=== PATIENT | male | born 1950 | race Caucasian/White ===

== ENCOUNTER 2018-05-30 13:41 | Outpatient (REF) | payer BC, SELFPAY ==
[2018-05-30 20:22] LABS: Abs Immature Grans 0.06 k/cumm (0.0-0.09); Absolute Basophil Count 0.05 k/cumm (0.0-0.2); Absolute Eosinophil Count 0.04 k/cumm (0.0-0.7); Absolute Lymphocyte Count 0.77 k/cumm (1.2-3.4); Absolute Monocyte Count 0.93 k/cumm (0.11-0.7); Absolute Neutrophil Count 5.09 k/cumm (1.2-6.7); Basophils % 0.7; Eosinophils % 0.6; HCT 40.2 % (40.0-50.0); HGB 13.4 g/dL (13.5-17.5); Immature Grans % 0.9; Lymphocytes % 11.1; Mean Corp. HGB Concentration 33.3 g/dL (32.0-36.0); Mean Corpuscular Hemoglobin 31.7 pg (27.0-33.0); Mean Platelet Volume 11.2 fL (8.0-11.0); Monocytes % 13.4; Neutrophils % 73.3; Platelet Count 197 x1000/uL (130-400); RBC 4.23 m/cumm (4.50-6.00); RBC Distribution Width 12.1 % (11.8-14.1); White Blood Cell Count 6.94 k/cumm (4.4-10.8)
[2018-05-30 20:41] LABS: ALT 26 U/L (12-78); AST 23 U/L (15-37); Albumin 2.9 g/dL (3.4-5.0); Alkaline Phosphatase 58 U/L (46-116); Anion Gap 10.1 mmol/L (3-11); BUN 21 mg/dL (7-18); Bilirubin, Total 0.4 mg/dL (0.2-1.0); C-Reactive Protein 4.77 mg/dL (0.0-0.3); CO2 25.9 mmol/L (21.0-32.0); CREATININE 1.14 mg/dL (0.70-1.30); Calcium 8.3 mg/dL (8.5-10.1); Chloride 99 mmol/L (98-107); Glucose 100 mg/dL (70-100); Potassium 4.3 mmol/L (3.5-5.1); Sodium 135 mmol/L (136-145); Total Protein 5.9 g/dL (6.4-8.2)
[2018-05-30 20:59] LABS: ESR 39 MM/HR (1-20)
[2018-06-01 11:35] LABS: Lyme Ab w Rflx to Lyme Confirm Negative
[2018-06-01 21:42] LABS: Anaplasma phagocytophilum Negative (Negative); B. miyamotoi PCR Negative (Negative); Babesia divergens/MO-1 Negative (Negative); Babesia duncani Negative (Negative); Babesia microti Negative (Negative); Ehrlichia chaffeensis Negative (Negative); Ehrlichia ewingii/canis Negative (Negative); Ehrlichia muris eauclairensis Negative (Negative)
== END 2018-05-30 14:01 ==
LOC: NCHCN 13:41
PROVIDERS: PCP Specialist/Technologist Athletic Trainer; Visit Provider Specialist/Technologist Athletic Trainer
DX: R50.9 Fever, unspecified (principal); R53.81 Other malaise; R53.83 Other fatigue
CPT/HCPCS: 80053; 85652; 85025; 86140; 86618; 87798

== ENCOUNTER 2018-05-31 12:24 | Outpatient (CLI) | payer BC, SELFPAY ==
[2018-06-01 08:54] LABS: Cyclic Citrullinated Peptide <2.5 U/mL (<5.0)
[2018-06-01 10:55] LABS: Rheumatoid Factor 11 IU/mL (<12.5)
[2018-06-01 15:38] LABS: ANA Interpretation Negative (NEGAT)
[2018-06-02 11:49] LABS: c-ANCA Negative (Negative); p-ANCA Negative (Negative)
== END 2018-05-31 12:44 ==
PROVIDERS: PCP Specialist/Technologist Athletic Trainer; Visit Provider Specialist/Technologist Athletic Trainer
DX: R79.82 Elevated C-reactive protein (CRP) (principal); R50.9 Fever, unspecified
CPT/HCPCS: 36410; 86200; 87040; 86038; 86255; 86431

== ENCOUNTER 2018-06-15 13:37 | Outpatient (REF) | payer BC, SELFPAY ==
[2018-06-15 19:03] LABS: Abs Immature Grans 0.03 k/cumm (0.0-0.09); Absolute Basophil Count 0.03 k/cumm (0.0-0.2); Absolute Eosinophil Count 0.11 k/cumm (0.0-0.7); Absolute Lymphocyte Count 0.89 k/cumm (1.2-3.4); Absolute Monocyte Count 0.58 k/cumm (0.11-0.7); Absolute Neutrophil Count 3.94 k/cumm (1.2-6.7); Basophils % 0.5; HCT 36.2 % (40.0-50.0); HGB 12.1 g/dL (13.5-17.5); Immature Grans % 0.5; Lymphocytes % 15.9; Mean Corp. HGB Concentration 33.4 g/dL (32.0-36.0); Mean Corpuscular Hemoglobin 32.4 pg (27.0-33.0); Mean Corpuscular Volume 96.8 fL (80-95); Mean Platelet Volume 10.3 fL (8.0-11.0); Monocytes % 10.4; Neutrophils % 70.7; Platelet Count 244 x1000/uL (130-400); RBC 3.74 m/cumm (4.50-6.00); RBC Distribution Width 13.2 % (11.8-14.1); White Blood Cell Count 5.58 k/cumm (4.4-10.8)
[2018-06-15 19:28] LABS: ALT 47 U/L (12-78); AST 30 U/L (15-37); Albumin 3.2 g/dL (3.4-5.0); Alkaline Phosphatase 54 U/L (46-116); Anion Gap 9.1 mmol/L (3-11); BUN 26 mg/dL (7-18); Bilirubin, Total 0.5 mg/dL (0.2-1.0); C-Reactive Protein 0.21 mg/dL (0.0-0.3); CO2 25.9 mmol/L (21.0-32.0); CREATININE 1.34 mg/dL (0.70-1.30); Calcium 8.5 mg/dL (8.5-10.1); Chloride 102 mmol/L (98-107); Estimated GFR 53.01 (mL/min/1.73m2); Glucose 90 mg/dL (70-100); Magnesium 1.9 mg/dL (1.8-2.4); Potassium 4.6 mmol/L (3.5-5.1); Sodium 137 mmol/L (136-145); TSH (W/Ref FT4) 1.65 uIU/mL (0.358-3.74); Total Protein 5.8 g/dL (6.4-8.2)
[2018-06-15 19:51] LABS: ESR 21 MM/HR (1-20)
== END 2018-06-15 13:57 ==
LOC: NCHCN 13:37
PROVIDERS: PCP Specialist/Technologist Athletic Trainer; Visit Provider Specialist/Technologist Athletic Trainer
DX: R79.82 Elevated C-reactive protein (CRP) (principal); R53.81 Other malaise; R50.9 Fever, unspecified
CPT/HCPCS: 80053; 85652; 83735; 84443; 85025; 86140

== ENCOUNTER 2018-06-16 18:22 | Emergency (ER) | payer BC, SELFPAY ==
[2018-06-16] VITALS (24 sets, daily range): BP systolic 126–151; BP diastolic 73–83; PULSE 65–76; RESP 9–18; TEMP 36; O2SAT 97–100
--- NOTE | 2018-06-16 18:54 | DI.RAD_ITS ---
SYMPTOMS/DIAGNOSIS: ACUTE LEFT SHOULDER PAIN PA AND LATERAL CHEST: Comparison is made with June,. The heart size is normal. The lungs are well inflated and clear. No infiltrate, effusion or pneumothorax is seen. There is an old distal left clavicle fracture, unchanged from 2009 shoulder films. No acute fractures of the ribs or spine are seen. IMPRESSION: Old left clavicle fracture. No acute abnormality.
[2018-06-16] MEDS: Aspirin 81 MG CHEW 324 MG CH (19:07)
[2018-06-16 19:11] LABS: Abs Immature Grans 0.06 k/cumm (0.0-0.09); Absolute Basophil Count 0.03 k/cumm (0.0-0.2); Absolute Eosinophil Count 0.02 k/cumm (0.0-0.7); Absolute Lymphocyte Count 0.77 k/cumm (1.2-3.4); Absolute Monocyte Count 0.37 k/cumm (0.11-0.7); Absolute Neutrophil Count 6.94 k/cumm (1.2-6.7); Basophils % 0.4; Eosinophils % 0.2; HCT 36.8 % (40.0-50.0); HGB 12.4 g/dL (13.5-17.5); Immature Grans % 0.7; Lymphocytes % 9.4; Mean Corp. HGB Concentration 33.7 g/dL (32.0-36.0); Mean Corpuscular Hemoglobin 32.3 pg (27.0-33.0); Mean Corpuscular Volume 95.8 fL (80-95); Mean Platelet Volume 9.7 fL (8.0-11.0); Monocytes % 4.5; Neutrophils % 84.8; Platelet Count 205 x1000/uL (130-400); RBC 3.84 m/cumm (4.50-6.00); RBC Distribution Width 12.9 % (11.8-14.1); White Blood Cell Count 8.19 k/cumm (4.4-10.8)
[2018-06-16 19:18] LABS: Magnesium 2.3 mg/dL (1.8-2.4)
[2018-06-16 19:32] LABS: ALT 51 U/L (12-78); AST 35 U/L (15-37); Albumin 3.4 g/dL (3.4-5.0); Alkaline Phosphatase 59 U/L (46-116); Anion Gap 11.5 mmol/L (3-11); BUN 26 mg/dL (7-18); Bilirubin, Total 0.4 mg/dL (0.2-1.0); CO2 24.5 mmol/L (21.0-32.0); CREATININE 1.23 mg/dL (0.70-1.30); Calcium 8.8 mg/dL (8.5-10.1); Chloride 102 mmol/L (98-107); Estimated GFR 58.52 (mL/min/1.73m2); Glucose 108 mg/dL (70-100); Potassium 4.3 mmol/L (3.5-5.1); Sodium 138 mmol/L (136-145); TSH 1.81 uIU/mL (0.358-3.74); Total Protein 6.7 g/dL (6.4-8.2); Troponin I < 0.02 ng/mL (0.00-0.06)
--- NOTE | 2018-06-16 19:37 | W.ED.GENAD ---
Discharge Plan Disposition Patient Disposition: HOME Condition: Good Discharge Details Chief Complaint: GenMedical Clinical Impression: Vubxx-[id number]-[id number] (WPW) pattern, Chest pain Primary Care Provider: Raúl Be ED Provider: Hal Cabrales Home Meds and New Rx's Prescriptions: New aspirin 81 mg tablet,delayed release (DR/EC) 81 mg PO DAILY Qty: 30 RF: 0 No Action diphenhydramine HCl 12.5 MG/5 ML elixir 12.5 mg PO HS PRNRF: 0 Discharge Instructions Instructions: Chest Pain (ED) Additional Instructions: He will be contacted shortly for cardiology follow-up. Please followup promptly with your primary care provider as soon as possible. If you notice any worsening of your symptoms, or any new symptoms such as vomiting, diarrhea, fever, chills, shortness of breath, chest pain, numbness, weakness, or fainting , please return immediately to the emergency department for reevaluation. Please follow up with your primary care provider as soon as possible for reassessment and reevaluation. As always, it was a pleasure participating in your medical care today. Referrals: Raúl Be [Primary Care Provider] - Medical Decision Making This is a 68-year-old male with no past medical history who is very healthy and athletic. He had a month of an odd undiagnosed etiology. He had a sore throat occasional night sweats, noticeable fatigue and some shortness of breath. Eventually got better on his own after a steroid course. However his fatigue and shortness of breath continued. This evening while he was making a martini he had a sudden onset left shoulder and left upper chest pain. It resolved on its own after 10 minutes. He had no other associated symptoms or radiation of the pain. He came into the ER for evaluation. He is currently completely pain-free. Physical exam demonstrates no abnormalities, vital signs are normal. He has no red flags for pulmonary embolisms. EKG was ordered and demonstrates biphasic T waves in V4 V5 V6, as well as concern for a delta wave. I did contact [facility] and spoke with the power transformer inspector Dr. Davenport, and he reviewed the x-rays, and he does confirm that that is a delta wave. He does not think that the biphasic T waves are commercial pest control representative of a Wellen syndrome as there is no evidence of it in V1 or V2. We did have the go and get 1 of the EKGs that he was sent home with on his last visit on Monday, on that EKG there is also definite evidence of a WPW pattern. The patient's heart score is less than 3. He is definitely in the low risk category. His symptoms may be musculoskeletal or atypical, I feel the WPW is a independent finding. The patient's d-dimer is elevated and we will get a CT angios for further evaluation. EKG 18:45 Rate 69, IL 126, QTc 493, QRS 142, sinus rhythm, questionable right bundle branch block. Concerning delta wave in V4 V5 and V6. Although the IL interval is 126 I feel that this is missread from the other leads. Biphasic T wave in V4 V5 V6 and V3. EKG was reviewed with Dr. Davenport at [facility] cardiology, and he confirms that he does believe this is a delta wave in V4 through V6. With no evidence of a biphasic T wave in V1 or V2 he does not think that this is a Wellens. CTA FINDINGS: Pulmonary arteries: No evidence of pulmonary embolism. Aorta: Normal caliber thoracic aorta without dissection or aneurysm. Lungs: No alveolar infiltrate. Pleural space: No pleural fluid collection. No pneumothorax. Heart: No pericardial effusion. Bones/joints: Possible old fracture of the distal left clavicle. Soft tissues: Unremarkable. Lymph nodes: No pathologically enlarged lymph nodes. IMPRESSION: 1. No evidence of pulmonary embolism. 2. No alveolar infiltrate. 9:[address] angios has returned negative from virtual radiology. No evidence of acute process. We are awaiting his second troponin. We will get a repeat EKG. If his serial troponins are negative, his repeat EKG shows a consistent WPW but no other acute findings, I do feel that he could be safely discharged home with his heart score being in the low risk category, his symptoms being atypical, and him being pain-free at this time. 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 The case was discussed with [facility] cardiology, Dr Davenport, and they agree with the plan at this time including outpatient follow-up. 10:14 p.m. Repeat troponin is normal. Patient continues to appear very clinically well. I had a thorough discussion with he and his regarding an extremely low threshold for prompt return, close follow-up, and red flags and symptoms for which to immediately return. I have extensively reviewed the treatment plan and discharge instructions with the patient and their family. I have addressed all patient concerns at this time. The patient and family was made aware of what symptoms to monitor for that would warrant a return to the emergency department. Discussed the plan with the patient and family, they demonstrate verbal understanding and agreement with our assessment and plan at this time. EKG 21: 48 Rate 65, IL 108, QTc 447, QRS 120, sinus rhythm, short IL, WPW pattern. No ST elevations or depressions, no biphasic T waves. Q waves present in lead III and aVF, which was present on prior EKG. From earlier today and at the patient's primary care provider's office. Of note we have compared her to EKG machines here simultaneously using the same stickers on a single patient, and one machine was creating unnecessary and atypical biphasic T waves. This appears to be an error. I do attribute this biphasic T wave component to the biphasic T waves in the prior EKG. We are now utilizing the EKG machine that does not have this issue. HPI General Date/Time Provider Initiated Documentation: 06/16/18 18:31. HPI Narrative: This is a 68-year-old male with no significant past medical history or surgeries who presents today for left shoulder pain, chest pain and fatigue. Patient states that over the last 3 weeks he has had an unknown illness with some mild sore throat, subjective fevers and chills, is followed up by his PCP. He eventually got much better from his symptoms after dose of steroids. He had a thorough autoimmune workup performed on an outpatient basis which demonstrated multiple inflammatory markers but no focal disease process that they could identify. Since then the patient has been doing well but has had continued fatigue, subjective shortness of breath both with and without exertion. He is a very active male who normally [place] service, but is had difficulty walking up stairs secondary to subjective shortness of breath. On Monday he did see his primary care provider, at that time an EKG was ordered and he was told by his PCP that he needs immediate cardiology follow-up next week. He was also told that if he has any chest pain he needs to come to the ER immediately. Tonight the patient was making a martini when he had a sudden onset of left shoulder and left upper chest pain. He was sitting down while this occurred and his symptoms are nonexertional. The pain eventually went away after 10-15 minutes. Currently he has no pain. The symptoms are not aggravated by movement, or exertion. He denies any cough, hemoptysis, calf pain. Denies PE risk factors such as recent long car rides, immobilization, recent surgery, prior history of DVT or PE, family history of PE or DVT, morbid obesity, exogenous estrogen and smoking, hemoptysis, history of cancer. He denies any history of cardiac disease or family history of cardiac disease. He does state that he and his child does have a history of PVCs, but he got an extensive workup 10 years ago. Cardiac catheterization echo and stress test all of which were normal. Patient denies any other complaints at this time. He denies any tobacco use. He has no hypertension or diabetes. No family history of cardiac disease. Patient denies any cocaine use. He has no other complaints at this time. Related Data Home Medications Medication Instructions Recorded Confirmed diphenhydramine HCl 12.5 mg PO HS PRN 12/21/16 06/16/18 aspirin 81 mg PO DAILY #30 tab 06/16/18 Previous Rx's Medication Instructions Recorded aspirin 81 mg PO DAILY #30 tab 06/16/18 Allergies Allergy/AdvReac Type Severity Reaction Status Date / Time dairy products AdvReac flu like Uncoded 06/16/18 18:37 symptoms for days General Stated Complaint: GenMedical BLANK: 3 Review of Systems Review of Systems All systems reviewed & are unremarkable except as noted in HPI and below PFSH Social History Smoking/Tobacco Use Status: Former Tobacco Use Surgical History Hernia Repair, Incisional Exam Narrative Exam Narrative: 1.Const: Well-nourished, Well-developed, appearing stated age, extremely athletic. 2.Eyes: PERRL, no conjunctival injection, and symmetrical lids. 3.ENT: Atraumatic external nose and ears. Moist MM. Neck: Symmetric, trachea midline, No thyromegaly. 4.CVS: +S1/S2, No murmurs or gallops. Peripheral pulses 2+ and equal in all extremities. Brisk capillary refill in all extremities. No reproducible chest pain. Radial pulses +2 bilaterally and equal. 5.RESP: Unlabored respiratory effort. Clear to auscultation bilaterally. No wheezes rales or rhonchi 6.GI: Soft, Nontender/Nondistended, No hepatosplenomegaly. No guarding or rebound. 7.MSK: Normocephalic/Atraumatic, Extremities w/o deformity or ttp No cyanosis or clubbing, Normal movement of all extremities 8.Skin: Warm, Dry. No rashes or lesions. 9.Neuro: radar repairer II-XII grossly intact. Sensation grossly intact, no focal neurologic deficits. 10.Psych: (AAO) x3. Appropriate mood and affect Course Vital Signs Temperature 36 C L 06/16/18 18:31 Pulse 71 06/16/18 18:31 Respiratory Rate 16 06/16/18 18:31 Blood Pressure 149/73 H 06/16/18 18:31 Pulse Oximetry 99 06/16/18 18:31 Temperature 36 C L 06/16/18 18:31 Temperature Source Skin 06/16/18 18:31 Pulse 71 06/16/18 18:31 Respiratory Rate 16 06/16/18 19:19 Respiratory Effort Non-Labored 06/16/18 19:19 Blood Pressure 149/73 H 06/16/18 18:31 Pulse Oximetry 99 06/16/18 18:31 Pain Level 2 06/16/18 18:31 Lab/Test Results Lab/Test Results: Laboratory Tests Range/Units 06/16/18 06/16/18 06/16/18 19:00 19:00 19:00 WBC (4.4-10.8) k/cumm 8.19 RBC (4.50-6.00) m/cumm 3.84 L Hgb (13.5-17.5) g/dL 12.4 L Hct (40.0-50.0) % 36.8 L MCV (80-95) fL 95.8 H MCH (27.0-33.0) pg 32.3 MCHC (32.0-36.0) g/dL 33.7 RDW (11.8-14.1) % 12.9 Plt Count (130-400) x1000/uL 205 MPV (8.0-11.0) fL 9.7 Immature Gran % 0.7 Neutrophils % 84.8 Lymphocytes % 9.4 Monocytes % 4.5 Eosinophils % 0.2 Basophils % 0.4 Absolute Neutrophils (1.2-6.7) k/cumm 6.94 H Absolute Lymphocytes (1.2-3.4) k/cumm 0.77 L Absolute Monocytes (0.11-0.7) k/cumm 0.37 Absolute Eosinophils (0.0-0.7) k/cumm 0.02 Absolute Basophils (0.0-0.2) k/cumm 0.03 Sodium (136-145) mmol/L 138 Potassium (3.5-5.1) mmol/L 4.3 Chloride (98-107) mmol/L 102 Carbon Dioxide (21.0-32.0) mmol/L 24.5 Anion Gap (3-11) mmol/L 11.5 H BUN (7-18) mg/dL 26 H Creatinine (0.70-1.30) mg/dL 1.23 Estimated GFR/1.73 m2 (mL/min/1.73m2) 58.52 Glucose (70-100) mg/dL 108 H Calcium (8.5-10.1) mg/dL 8.8 Magnesium (1.8-2.4) mg/dL 2.3 Total Bilirubin (0.2-1.0) mg/dL 0.4 AST (15-37) U/L 35 ALT (12-78) U/L 51 Alkaline Phosphatase (46-116) U/L 59 Troponin I (0.00-0.06) ng/mL < 0.02 Total Protein (6.4-8.2) g/dL 6.7 Albumin (3.4-5.0) g/dL 3.4 TSH (0.358-3.74) uIU/mL 1.81
--- NOTE | 2018-06-16 19:40 | ED.GENADUL_ITS ---
Discharge Plan Disposition Patient Disposition: HOME Condition: Good Discharge Details Chief Complaint: GenMedical Clinical Impression: Zqxli-[id number]-[id number] (WPW) pattern, Chest pain Primary Care Provider: Raúl Be ED Provider: Hal Cabrales Home Meds and New Rx's Prescriptions: New aspirin 81 mg tablet,delayed release (DR/EC) 81 mg PO DAILY Qty: 30 RF: 0 No Action diphenhydramine HCl 12.5 MG/5 ML elixir 12.5 mg PO HS PRNRF: 0 Discharge Instructions Instructions: Chest Pain (ED) Additional Instructions: He will be contacted shortly for cardiology follow-up. Please followup promptly with your primary care provider as soon as possible. If you notice any worsening of your symptoms, or any new symptoms such as vomiting, diarrhea, fever, chills, shortness of breath, chest pain, numbness, weakness, or fainting , please return immediately to the emergency department for reevaluation. Please follow up with your primary care provider as soon as possible for reassessment and reevaluation. As always, it was a pleasure participating in your medical care today. Referrals: Raúl Be [Primary Care Provider] - Medical Decision Making This is a 68-year-old male with no past medical history who is very healthy and athletic. He had a month of an odd undiagnosed etiology. He had a sore throat occasional night sweats, noticeable fatigue and some shortness of breath. Eventually got better on his own after a steroid course. However his fatigue and shortness of breath continued. This evening while he was making a martini he had a sudden onset left shoulder and left upper chest pain. It resolved on its own after 10 minutes. He had no other associated symptoms or radiation of the pain. He came into the ER for evaluation. He is currently completely pain-free. Physical exam demonstrates no abnormalities, vital signs are normal. He has no red flags for pulmonary embolisms. EKG was ordered and demonstrates biphasic T waves in V4 V5 V6, as well as concern for a delta wave. I did contact [facility] and spoke with the head grinder Dr. Davenport, and he reviewed the x-rays, and he does confirm that that is a delta wave. He does not think that the biphasic T waves are customer retention representative of a Wellen syndrome as there is no evidence of it in V1 or V2. We did have the go and get 1 of the EKGs that he was sent home with on his last visit on Monday, on that EKG there is also definite evidence of a WPW pattern. The patient's heart score is less than 3. He is definitely in the low risk category. His symptoms may be musculoskeletal or atypical, I feel the WPW is a independent finding. The patient's d-dimer is elevated and we will get a CT angios for further evaluation. EKG 18:45 Rate 69, SD 126, QTc 493, QRS 142, sinus rhythm, questionable right bundle branch block. Concerning delta wave in V4 V5 and V6. Although the SD interval is 126 I feel that this is missread from the other leads. Biphasic T wave in V4 V5 V6 and V3. EKG was reviewed with Dr. Davenport at [facility] cardiology, and he confirms that he does believe this is a delta wave in V4 through V6. With no evidence of a biphasic T wave in V1 or V2 he does not think that this is a Wellens. CTA FINDINGS: Pulmonary arteries: No evidence of pulmonary embolism. Aorta: Normal caliber thoracic aorta without dissection or aneurysm. Lungs: No alveolar infiltrate. Pleural space: No pleural fluid collection. No pneumothorax. Heart: No pericardial effusion. Bones/joints: Possible old fracture of the distal left clavicle. Soft tissues: Unremarkable. Lymph nodes: No pathologically enlarged lymph nodes. IMPRESSION: 1. No evidence of pulmonary embolism. 2. No alveolar infiltrate. 9:[address] angios has returned negative from virtual radiology. No evidence of acute process. We are awaiting his second troponin. We will get a repeat EKG. If his serial troponins are negative, his repeat EKG shows a consistent WPW but no other acute findings, I do feel that he could be safely discharged home with his heart score being in the low risk category, his symptoms being atypical, and him being pain-free at this time. 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 The case was discussed with [facility] cardiology, Dr Davenport, and they agree with the plan at this time including outpatient follow-up. 10:14 p.m. Repeat troponin is normal. Patient continues to appear very clinically well. I had a thorough discussion with he and his regarding an extremely low threshold for prompt return, close follow-up, and red flags and symptoms for which to immediately return. I have extensively reviewed the treatment plan and discharge instructions with the patient and their family. I have addressed all patient concerns at this time. The patient and family was made aware of what symptoms to monitor for that would warrant a return to the emergency department. Discussed the plan with the patient and family, they demonstrate verbal understanding and agreement with our assessment and plan at this time. EKG 21: 48 Rate 65, SD 108, QTc 447, QRS 120, sinus rhythm, short SD, WPW pattern. No ST elevations or depressions, no biphasic T waves. Q waves present in lead III and aVF, which was present on prior EKG. From earlier today and at the patient' s primary care provider's office. Of note we have compared her to EKG machines here simultaneously using the same stickers on a single patient, and one machine was creating unnecessary and atypical biphasic T waves. This appears to be an error. I do attribute this biphasic T wave component to the biphasic T waves in the prior EKG. We are now utilizing the EKG machine that does not have this issue. HPI General Date/Time Provider Initiated Documentation: 06/16/18 18:31 . HPI Narrative: This is a 68-year-old male with no significant past medical history or surgeries who presents today for left shoulder pain, chest pain and fatigue. Patient states that over the last 3 weeks he has had an unknown illness with some mild sore throat, subjective fevers and chills, is followed up by his PCP. He eventually got much better from his symptoms after dose of steroids. He had a thorough autoimmune workup performed on an outpatient basis which demonstrated multiple inflammatory markers but no focal disease process that they could identify. Since then the patient has been doing well but has had continued fatigue, subjective shortness of breath both with and without exertion. He is a very active male who normally [place] service, but is had difficulty walking up stairs secondary to subjective shortness of breath. On Monday he did see his primary care provider, at that time an EKG was ordered and he was told by his PCP that he needs immediate cardiology follow -up next week. He was also told that if he has any chest pain he needs to come to the ER immediately. Tonight the patient was making a martini when he had a sudden onset of left shoulder and left upper chest pain. He was sitting down while this occurred and his symptoms are nonexertional. The pain eventually went away after 10-15 minutes. Currently he has no pain. The symptoms are not aggravated by movement, or exertion. He denies any cough, hemoptysis, calf pain. Denies PE risk factors such as recent long car rides, immobilization, recent surgery, prior history of DVT or PE, family history of PE or DVT, morbid obesity, exogenous estrogen and smoking, hemoptysis, history of cancer. He denies any history of cardiac disease or family history of cardiac disease. He does state that he and his child does have a history of PVCs, but he got an extensive workup 10 years ago. Cardiac catheterization echo and stress test all of which were normal. Patient denies any other complaints at this time. He denies any tobacco use. He has no hypertension or diabetes. No family history of cardiac disease. Patient denies any cocaine use. He has no other complaints at this time. Related Data Home Medications Medication Instructions Recorded Confirmed diphenhydramine HCl 12.5 mg PO HS PRN 12/21/16 06/16/18 aspirin 81 mg PO DAILY #30 tab 06/16/18 Previous Rx's Medication Instructions Recorded aspirin 81 mg PO DAILY #30 tab 06/16/18 Allergies Allergy/AdvReac Type Severity Reaction Status Date / Time dairy products AdvReac flu like Uncoded 06/16/18 18:37 symptoms for days General Stated Complaint: GenMedical BLANK: 3 Review of Systems Review of Systems All systems reviewed & are unremarkable except as noted in HPI and below PFSH Social History Smoking/Tobacco Use Status: Former Tobacco Use Surgical History Hernia Repair, Incisional Exam Narrative Exam Narrative: 1.Const: Well-nourished, Well-developed, appearing stated age, extremely athletic. 2.Eyes: PERRL, no conjunctival injection, and symmetrical lids. 3.ENT: Atraumatic external nose and ears. Moist MM. Neck: Symmetric, trachea midline, No thyromegaly. 4.CVS: +S1/S2, No murmurs or gallops. Peripheral pulses 2+ and equal in all extremities. Brisk capillary refill in all extremities. No reproducible chest pain. Radial pulses +2 bilaterally and equal. 5.RESP: Unlabored respiratory effort. Clear to auscultation bilaterally. No wheezes rales or rhonchi 6.GI: Soft, Nontender/Nondistended, No hepatosplenomegaly. No guarding or rebound. 7.MSK: Normocephalic/Atraumatic, Extremities w/o deformity or ttp No cyanosis or clubbing, Normal movement of all extremities 8.Skin: Warm, Dry. No rashes or lesions. 9.Neuro: studio musician II-XII grossly intact. Sensation grossly intact, no focal neurologic deficits. 10.Psych: (AAO) x3. Appropriate mood and affect Course Vital Signs Temperature 36 C L 06/16/18 18:31 Pulse 71 06/16/18 18:31 Respiratory Rate 16 06/16/18 18:31 Blood Pressure 149/73 H 06/16/18 18:31 Pulse Oximetry 99 06/16/18 18:31 Temperature 36 C L 06/16/18 18:31 Temperature Source Skin 06/16/18 18:31 Pulse 71 06/16/18 18:31 Respiratory Rate 16 06/16/18 19:19 Respiratory Effort Non-Labored 06/16/18 19:19 Blood Pressure 149/73 H 06/16/18 18:31 Pulse Oximetry 99 06/16/18 18:31 Pain Level 2 06/16/18 18:31 Lab/Test Results Lab/Test Results: Laboratory Tests Range/Units 06/16/18 06/16/18 06/16/18 19:00 19:00 19:00 WBC (4.4-10.8) k/cumm 8.19 RBC (4.50-6.00) m/cumm 3.84 L Hgb (13.5-17.5) g/dL 12.4 L Hct (40.0-50.0) % 36.8 L MCV (80-95) fL 95.8 H MCH (27.0-33.0) pg 32.3 MCHC (32.0-36.0) g/dL 33.7 RDW (11.8-14.1) % 12.9 Plt Count (130-400) x1000/uL 205 MPV (8.0-11.0) fL 9.7 Immature Gran % 0.7 Neutrophils % 84.8 Lymphocytes % 9.4 Monocytes % 4.5 Eosinophils % 0.2 Basophils % 0.4 Absolute Neutrophils (1.2-6.7) k/cumm 6.94 H Absolute Lymphocytes (1.2-3.4) k/cumm 0.77 L Absolute Monocytes (0.11-0.7) k/cumm 0.37 Absolute Eosinophils (0.0-0.7) k/cumm 0.02 Absolute Basophils (0.0-0.2) k/cumm 0.03 Sodium (136-145) mmol/L 138 Potassium (3.5-5.1) mmol/L 4.3 Chloride (98-107) mmol/L 102 Carbon Dioxide (21.0-32.0) mmol/L 24.5 Anion Gap (3-11) mmol/L 11.5 H BUN (7-18) mg/dL 26 H Creatinine (0.70-1.30) mg/dL 1.23 Estimated GFR/1.73 m2 (mL/min/1.73m2) 58.52 Glucose (70-100) mg/dL 108 H Calcium (8.5-10.1) mg/dL 8.8 Magnesium (1.8-2.4) mg/dL 2.3 Total Bilirubin (0.2-1.0) mg/dL 0.4 AST (15-37) U/L 35 ALT (12-78) U/L 51 Alkaline Phosphatase (46-116) U/L 59 Troponin I (0.00-0.06) ng/mL < 0.02 Total Protein (6.4-8.2) g/dL 6.7 Albumin (3.4-5.0) g/dL 3.4 TSH (0.358-3.74) uIU/mL 1.81
[2018-06-16 19:43] LABS: D-Dimer 763 ng/mlFEU (<500)
--- NOTE | 2018-06-16 19:54 | DI.CT_ITS ---
SYMPTOM/DIAGNOSIS: ELEVATED D DIMER, SOB, NEW WPW PE CHEST CT: CT angiography was performed with multi slice acquisition and multi planar and 3D reconstruction. There is no evidence of pulmonary emboli or aortic dissection. No pleural or pericardial effusions are seen. There is no evidence of an infiltrate, mass or adenopathy. The visualized portions of the upper abdomen are unremarkable. IMPRESSION: Negative chest CT. No evidence of pulmonary emboli or other acute abnormality.
[2018-06-16] MEDS: Normal Saline 1,000 ML 1000 ML IV (20:07)
--- NOTE | 2018-06-16 20:16 | DI.VRAD_ITS ---
EXAM: XR Chest, 2 Views EXAM DATE/TIME: 06/16/2018 6:57 PM CLINICAL HISTORY: 68 years old, male; Pain; Acute left shoulder pain TECHNIQUE: XR of the chest, 2 views. COMPARISON: CR ABD FLAT UPRIGHT PA CHEST 07/06/2014 8:17 PM FINDINGS: Lungs: Unremarkable. No consolidation. Pleural space: Unremarkable. No pleural effusion. No pneumothorax. Heart/Mediastinum: Unremarkable. No cardiomegaly. Bones/joints: Possible old fracture of the distal left clavicle. IMPRESSION: No active pulmonary disease. Dictated and Authenticated by: Agusto Nam MD. Ordering:JOE ALMANZA MD
--- NOTE | 2018-06-16 20:20 | DI.VRAD_ITS ---
EXAM: CT Angiography Chest With Intravenous Contrast EXAM DATE/TIME: 06/16/2018 7:47 PM CLINICAL HISTORY: 68 years old, male; Elevated d-dimer, SOB for last month, new wpw TECHNIQUE: Axial computed tomographic angiography images of the chest with intravenous contrast using CT angiography protocol. Coronal and sagittal reformatted images were created and reviewed. MIP reconstructed images were created and reviewed. COMPARISON: CR XR CHEST 2V PA LATERAL 06/16/2018 7:25 PM FINDINGS: Pulmonary arteries: No evidence of pulmonary embolism. Aorta: Normal caliber thoracic aorta without dissection or aneurysm. Lungs: No alveolar infiltrate. Pleural space: No pleural fluid collection. No pneumothorax. Heart: No pericardial effusion. Bones/joints: Possible old fracture of the distal left clavicle. Soft tissues: Unremarkable. Lymph nodes: No pathologically enlarged lymph nodes. IMPRESSION: 1. No evidence of pulmonary embolism. 2. No alveolar infiltrate. Dictated and Authenticated by: Agusto Nam MD. Ordering:JOE ALMANZA MD
[2018-06-16 21:56] LABS: Troponin I < 0.02 ng/mL (0.00-0.06)
--- NOTE | 2018-06-18 08:08 | PDOC.ERCMPRO ---
Care Management Progress Note 06/18-Dr. 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 Referral faxed to cardiology this am.
== END 2018-06-16 22:30 | disposition home or self-care (01) ==
PROVIDERS: Emergency Provider Student in an Organized Health Care Education/Training Program; PCP Specialist/Technologist Athletic Trainer
DX: I45.6 Pre-excitation syndrome (principal); R07.9 Chest pain, unspecified; Z87.891 Personal history of nicotine dependence
CPT/HCPCS: 36415; 71275; 80053; 93005; 96360; 99285; 71046; 83735; 84443; 84484; 85025; 85379; 93010

== ENCOUNTER 2018-08-09 21:05 | Outpatient (REF) | payer BC, SELFPAY | END 2018-08-09 21:25 | LOC: NCHCN 21:05 | PROVIDERS: PCP Specialist/Technologist Athletic Trainer; Visit Provider Specialist/Technologist Athletic Trainer | DX: Z12.5 Encounter for screening for malignant neoplasm of prostate (principal); Z00.00 Encounter for general adult medical examination without abnormal findings | CPT/HCPCS: 84153 ==

== ENCOUNTER 2019-08-16 13:43 | Outpatient (REF) | payer OTHER, SELFPAY ==
[2019-08-16 19:18] LABS: ALT 30 U/L (16-63); AST 24 U/L (15-37); Albumin 4.4 g/dL (3.4-5.0); Alkaline Phosphatase 47 U/L (46-116); Anion Gap 8.5 mmol/L (3-11); BUN 19 mg/dL (7-18); Bilirubin, Total 0.5 mg/dL (0.2-1.0); CO2 28.5 mmol/L (21.0-32.0); CREATININE 1.08 mg/dL (0.70-1.30); Calcium 9.2 mg/dL (8.5-10.1); Calculated LDL 116 mg/dL; Chloride 103 mmol/L (98-107); Cholesterol 225 mg/dL (<200); Glucose 100 mg/dL (74-106); HDL Cholesterol 95 mg/dL (40-60); Magnesium 2.1 mg/dL (1.8-2.4); Potassium 4.8 mmol/L (3.5-5.1); Sodium 140 mmol/L (136-145); Triglyceride 74 mg/dL (<150)
[2019-08-19 11:09] LABS: PSA, Screening 3.6 ng/mL (0.0-4.5)
== END 2019-08-16 14:03 ==
LOC: NCHCN 13:43
PROVIDERS: Referring Provider Specialist/Technologist Athletic Trainer; Visit Provider Specialist/Technologist Athletic Trainer
DX: Z00.00 Encounter for general adult medical examination without abnormal findings (principal); Z13.220 Encounter for screening for lipoid disorders; Z13.228 Encounter for screening for other metabolic disorders; Z12.5 Encounter for screening for malignant neoplasm of prostate
CPT/HCPCS: 80053; 80061; 84153; 83735

== ENCOUNTER 2019-11-15 15:51 | Outpatient (CLI) | payer OTHER, SELFPAY ==
--- NOTE | 2019-11-15 | DI.RAD_ITS ---
EXAM: XR CHEST 2V PA LATERAL CLINICAL HISTORY: SHORTNESS OF BREATH TECHNIQUE: COMPARISON: XR CHEST 2V PA LATERAL from 06/16/2018 FINDINGS: The heart is not enlarged. There appear to be mild changes of COPD. There is small area of opacity projected over the left lower lung field, this was not present on prior chest film of May 2018. Possibility of intrapulmonary infiltrate or nodule is raised. Follow-up film requested and if the fi ndings do not resolve additional evaluation with chest CT should be considered. Mild pleural blunting noted posteriorly, unchanged from prior study. No additional infiltrate identi fied. No pneumothorax. IMPRESSION: Question left basilar consolidation or mass, follow-up chest radiograph requested and if the findings do not resolve additional evaluation with chest CT would be suggested
--- NOTE | 2019-11-15 16:23 | DI.VRAD_ITS ---
Addendum created by Robel De Jesus MD on 11/15/2019 6:11:16 PM EDT THIS REPORT CONTAINS FINDINGS THAT MAY BE CRITICAL TO PATIENT CARE. The findings were verbally communicated via telephone conference with Dr. Kirk at 6:10 PM EDT on 11/15/2019. The findings were acknowledged and understood. Initial report created on 11/15/2019 4:23:20 PM EDT PROCEDURE INFORMATION: Exam: XR Chest, 2 Views Exam date and time: 11/15/2019 4:03 PM Age: 69 years old Clinical indication: Shortness of breath; Patient HX: SOB; Additional info: PT suspected for covid-19 TECHNIQUE: Imaging protocol: XR of the chest Views: 2 views. COMPARISON: CR XR CHEST 2V PA LATERAL 06/16/2018 7:25 PM FINDINGS: Lungs: Hyperexpanded lung padilla consistent with COPD Small area focal opacity is newly developed in the left base compared to the prior study. This may represent increased soft tissue density around the left nipple versus atelectasis or pneumonia. Pleural space: Unremarkable. No pleural effusion. No pneumothorax. Heart/Mediastinum: Unremarkable. No cardiomegaly. Bones/joints: Unremarkable. IMPRESSION: Small area focal opacity is newly developed in the left base compared to the prior study. This may represent increased soft tissue density around the left nipple versus atelectasis or pneumonia. Dictated and Authenticated by: Robel De Jesus MD. Ordering:SHERINE Raymond MD
== END 2019-11-15 16:11 ==
PROVIDERS: Visit Provider Nurse Practitioner Family
DX: R06.02 Shortness of breath (principal); J44.9 Chronic obstructive pulmonary disease, unspecified; R91.8 Other nonspecific abnormal finding of lung field
CPT/HCPCS: 71046

== ENCOUNTER 2019-11-15 16:09 | Outpatient (REF) | payer OTHER, SELFPAY ==
[2019-11-20 10:56] LABS: COVID-19 RT-PCR Result Not Detected (NotDetected)
== END 2019-11-15 16:29 ==
LOC: NCHCN 16:09
PROVIDERS: Visit Provider Nurse Practitioner Family
DX: Z20.828 Contact with and (suspected) exposure to other viral communicable diseases (principal); R06.02 Shortness of breath
CPT/HCPCS: U0003

== ENCOUNTER 2019-12-16 01:52 | Outpatient (CLI) | payer OTHER, SELFPAY ==
--- NOTE | 2019-12-16 | DI.CT_ITS ---
EXAM: CT CHEST W CLINICAL HISTORY: SOB, R06.02,F/U XR 10/2019, ? MASS TECHNIQUE: Imaging Protocol: Axial computed tomography images with coronal and sagittal reformatted images were created and reviewed CONTRAST MATERIAL: Intravenous: Omnipaque 350 Contrast volume:70 ml. XR CHEST 2V PA LATERAL from 06/16/2018 XR CHEST 2V PA LATERAL from 11/15/2019 FINDINGS: Tracheobronchial tree: Patent where visualized. Mediastinum and Roselia: No dominant adenopathy or fluid collection. Pulmonary parenchyma: No consolidation or dominant measurable mass. There is a stable 5 millimeter no dule in the lingula. There is a minimal apical scarring. Pleura: No effusion or pneumothorax. Heart: The heart is not dilated. No coronary artery calcifications are seen. There is motion at level of the aortic root. Aorta: Thoracic aorta non-dilated. Minimal aortic calcifications are seen. Upper abdomen: Unremarkable. Lymph nodes: Within normal limits. Bones: Mild degenerative changes are seen in the spine.. IMPRESSION: No evidence of a mass or other acute abnormality. Stable 5 millimeter nodule seen in the lingula.. DATA REPOSITORY: All CT scans at this facility are submitted to the National Radiology Data Registry (NRDR) Dose Index Registry (DIR) with the [employer] (A[employer]). RADIATION OPTIMIZATION: All CT scans at this facility use at least one of these dose optimization te chniques: automated exposure control; mA and/or kV adjustment per patient size (includes targeted exa ms where dose is matched to clinical indication); or iterative reconstruction.
[2019-12-16 14:19] LABS: CREATININE 1.18 mg/dL (0.70-1.30)
[2019-12-16] MEDS: Omnipaque 350 MG/ML 100 ML BTL IV (15:11)
[2019-12-16] MEDS: Normal Saline - Diluent 50 ML VIAL IV (15:13)
[2019-12-17 14:29] LABS: PSA, Screening 3.3 ng/mL (0.0-4.5)
== END 2019-12-16 02:12 ==
PROVIDERS: PCP Family Medicine; Visit Provider Family Medicine
DX: R06.02 Shortness of breath (principal); R91.1 Solitary pulmonary nodule; Z12.5 Encounter for screening for malignant neoplasm of prostate; Z13.89 Encounter for screening for other disorder
CPT/HCPCS: 84153; 71260; 82565; J3490

== ENCOUNTER 2020-03-06 16:05 | Outpatient (REF) | payer OTHER, SELFPAY ==
[2020-03-12 20:34] LABS: SARS-CoV-2 RNA Undetected (Undetected); SARS-CoV-2 Specimen Source Nasopharynx
== END 2020-03-06 16:25 ==
LOC: NCHCN 16:05
PROVIDERS: PCP Family Medicine; Visit Provider Nurse Practitioner Family
DX: R53.83 Other fatigue (principal); Z11.59 Encounter for screening for other viral diseases
CPT/HCPCS: U0003

== ENCOUNTER 2020-03-11 00:21 | Emergency (ER) | payer OTHER, SELFPAY ==
[2020-03-11] VITALS (40 sets, daily range): BP systolic 111–157; BP diastolic 52–105; PULSE 69–192; RESP 10–29; TEMP 36.6; O2SAT 87–100
--- NOTE | 2020-03-11 00:15 | RT.EKG_ITS ---
APPROVED REPORT Exam: Resting ECG Patient Location: E HR:156 bpm ECG Measurements Heart Rate 156 AXIS WA [id number] P [id number] QRSd 89 QRS 61 QT 313 T -69 QTc 504 <Conclusion> EKG 00: 30 Atrial fibrillation in appearance, no clear P waves, atypical morphology of QRS in V3, concerning for delta wave as well as in V2. [place] interval cannot be measured. No significant ST elevations or depre ssions aside for nonspecific depressions in V3 and V6. QRS notably normal throughout, however wider in V4 through V5
--- NOTE | 2020-03-11 00:30 | RT.EKG_ITS ---
APPROVED REPORT Exam: Resting ECG Patient Location: E HR:85 bpm ECG Measurements Heart Rate 85 AXIS NJ 148 P 64 QRSd 122 QRS -46 QT 403 T 103 QTc 479 <Conclusion> EKG 2: 07 Rate 85, sinus rhythm, delta wave noted in V4 through V6, no evidence of STEMI. Notable transition t o sinus rhythm compared to prior EKGs)
[2020-03-11] MEDS: Normal Saline 500 ML IV (00:42)
[2020-03-11 00:44] LABS: Abs Immature Grans 0.02 k/cumm (0.0-0.09); Absolute Basophil Count 0.02 k/cumm (0.0-0.2); Absolute Eosinophil Count 0.21 k/cumm (0.0-0.7); Absolute Lymphocyte Count 2.55 k/cumm (1.2-3.4); Absolute Monocyte Count 0.55 k/cumm (0.11-0.7); Basophils % 0.3; Eosinophils % 3.4; HGB 15.5 g/dL (13.5-17.5); Immature Grans % 0.3 %; Lymphocytes % 40.8; Mean Corp. HGB Concentration 34.4 g/dL (32.0-36.0); Mean Corpuscular Volume 95.7 fL (80-95); Mean Platelet Volume 11.1 fL (8.0-11.0); Monocytes % 8.8; Neutrophils % 46.4; Platelet Count 194 x1000/uL (130-400); RBC Distribution Width 12.3 % (11.8-14.1); White Blood Cell Count 6.25 k/cumm (4.4-10.8)
--- NOTE | 2020-03-11 00:45 | NUR.NOTE ---
Nursing Note: Valsalva techniques attempted with patient with Dr Bartholomew instructions. Unsuccessful attempt.
--- NOTE | 2020-03-11 00:47 | ED.GENADUL_ITS ---
Discharge Plan Disposition Patient Disposition: [facility] Condition: Stable Discharge Details Chief Complaint: Palpitatns Clinical Impression: Atrial fibrillation with rapid ventricular response, Pre-excitation syndrome, Unidirectional retrograde accessory cardiac pathway, Heart palpitations Primary Care Provider: Lubna Matthews V ED Provider: Hal Cabrales Home Meds and New Rx's Prescriptions: No Action diphenhydramine HCl 12.5 MG/5 ML elixir 12.5 mg PO HS PRNRF: 0 Medical Decision Making Upon my evaluation, this patient had a high probability of imminent or life- threatening deterioration, which required my direct attention, intervention, and personal management. I have personally provided 45 minutes of critical care time exclusive of time spent on separately billable procedures. Time includes review of laboratory data, radiology results, discussion with consultants, and monitoring for potential decompensation. Interventions were performed as docu mented. 69-year-old male presents today for palpitations. Patient states that 20 to 30 minutes ago he woke up from sleep, noticed a sensation of palpitations. He immediately came to the ER for further evaluation. He denies chest pain, chest tightness, arm neck or shoulder pain. He has no other complaints at this time. No other medications, past medical history is notably limited, he has no medical problems except for when I saw him here in the ER personally 1.5 years ago where he was diagnosed with suspected [id number]. Unfortunately he was unable to follow-up with [facility] cardiology on an outpatient setting, but did follow-up with a carpet installation specialist in [place] [facility]. He is not on any medications for this. No other complaints at this time. No other modifying factors. Physical exam is notably unremarkable, blood pressure stable, heart rate in the 150s to 170s. EKG demonstrates evidence of what appears to be a delta wave in V3, relatively wide complex QRS, appears irregular similar to atrial fibrillation. 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 I do not think you would be a candidate for adenosine at this time. Perhaps procainamide would certainly be more beneficial. However prior to this we will attempt Valsalva techniques. As his pressures are notably stable I do feel that we have a small amount of time for close evaluation. We will contact [facility] cardiology and discussed the case with them as well. Patient will be set up though for procedural sedation during the meantime. 1:[address] 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 fib with preexcitation syndrome. He spoke with electrophysiology, and he recommends emergent transfer to [facility] ICU. In the meantime initially the recommendation was for administration of procainamide but unfortunately it does not appear that any is available at [facility]. As an alternative he recommends 2 g of magnesium being given wide open, after this 1 mg of ibutilide over 10 minutes, monitoring closely for change, if this is unsuccessful in converting him to sinus then an additional 1 mg dose of ibutilide over 10 minutes. If this is unsuccessful then he does recommend electrical cardioversion. Patient is still prepped for conscious sedation, propofol is at bedside. We will progress with this plan. Patient has been accepted at [facility], we will arrange transfer [facility]. Cardiology has also requested that we start heparin on the patient which we will do. 2:01 AM Initial 1 mg dose of ibutilide was given as directed, no changes in rate or rhythm. EKG still demonstrates A. fib. No significant QT or QRS prolongation. We will continue with second dose of ibutilide. 2:07 AM Jail through the second dose of ibutilide the patient converted to sinus rhythm, he feels well, reflexes including deep tendon reflexes remain normal. No additional magnesium indicated. Intervals are W[place] 148 on EKG, however there does appear to be a delta wave in V4 through V6, QRS is 122, QT is 400. The patient remains hemodynamically stable. He will be transferred to [facility] for continued cardiology management. I have extensively reviewed the treatment plan with the patient. I have addressed all patient concerns at this time. I have also discussed the plan with the admitting physician and they agree with the current assessment and plan and have agreed to assume responsibility for the patient. All parties demonstrate verbal understanding and agreement with our assessment and plan at this time. At time of transfer the patient was reassessed and continued to demonstrate current medical stability. No signs of acute respiratory distress requiring intubation, hemodynamic instability requiring pressor support, or rapidly declining mental status. The patient is stable for transport. EKG 00: 30 Atrial fibrillation in appearance, no clear P waves, atypical morphology of QRS in V3, concerning for delta wave as well as in V2. [place] interval cannot be measured. No significant ST elevations or depressions aside for nonspecific depressions in V3 and V6. QRS notably normal throughout, however wider in V4 through V5 EKG 1: 59 Atrial fibrillation, rate 146, W[place] 101, QRS 81, QTc 308, no evidence of significant ST elevation or depression in regards to STEMI. Still appears to be a delta wave in V4 through V6, EKG 2: 07 Rate 85, sinus rhythm, delta wave noted in V4 through V6, no evidence of STEMI. Notable transition to sinus rhythm compared to prior EKGs HPI General Date/Time Provider Initiated Documentation: 03/11/20 00:22 . HPI Narrative: 69-year-old male presents today for palpitations. Patient states that 20 to 30 minutes ago he woke up from sleep, noticed a sensation of palpitations. He immediately came to the ER for further evaluation. He denies chest pain, chest tightness, arm neck or shoulder pain. He has no other complaints at this time. No other medications, past medical history is notably limited, he has no medical problems except for when I saw him here in the ER personally 1.5 years ago where he was diagnosed with suspected [id number]. Unfortunately he was unable to follow-up with [facility] cardiology on an outpatient setting, but did follow-up with a carpet installation specialist in [place] [facility]. He is not on any medications for this. No other complaints at this time. No other modifying factors. Related Data Home Medications Medication Instructions Recorded Confirmed diphenhydramine HCl 12.5 mg PO HS PRN 12/21/16 03/11/20 Allergies Allergy/AdvReac Type Severity Reaction Status Date / Time dairy products AdvReac flu like Uncoded 03/11/20 00:30 symptoms for days General Stated Complaint: Palpitatns BLANK: 2 Review of Systems All systems reviewed & are unremarkable except as noted in HPI and below PFSH Surgical History Hernia Repair, Incisional r side Social History Smoking/Tobacco Use Status: Former Tobacco Use Alcohol Intake: current Alcohol Intake frequency: 0-2 drinks per day Alcohol type: beer, wine and hard liquor Drug use: Never Substance use type: does not use Do you feel safe at home: Yes Do you feel safe in your relationship?: Yes Exam Narrative Exam Narrative: 1.Const: Well-nourished, Well-developed, appearing stated age 2.Eyes: PERRL, no conjunctival injection, and symmetrical lids. 3.ENT: Atraumatic external nose and ears. Moist MM. Neck: Symmetric, trachea midline, No thyromegaly. 4.CVS: +S1/S2, No murmurs or gallops. Peripheral pulses 2+ and equal in all extremities. Brisk capillary refill in all extremities. 5.RESP: Unlabored respiratory effort. Clear to auscultation bilaterally. No wheezes rales or rhonchi 6.GI: Soft, Nontender/Nondistended, No hepatosplenomegaly. No guarding or rebound. 7.MSK: Normocephalic/Atraumatic, Extremities w/o deformity or ttp No cyanosis or clubbing, Normal movement of all extremities 8.Skin: Warm, Dry. No rashes or lesions. 9.Neuro: drafter marine II-XII grossly intact. Sensation grossly intact, no focal neurologic deficits. 10.Psych: (AAO) x3. Appropriate mood and affect Course Vital Signs Vital signs: Vital Signs Temperature 36.6 C 03/11/20 00:25 Pulse 155 H 03/11/20 00:25 Respiratory Rate 03/11/20 00:25 Blood Pressure 140/88 03/11/20 00:25 Pulse Oximetry 100 03/11/20 00:25 Temperature 36.6 C 03/11/20 00:25 Temperature Source Oral 03/11/20 00:25 Pulse 155 H 03/11/20 00:25 Respiratory Rate 20 03/11/20 00:25 Blood Pressure 140/88 03/11/20 00:25 Blood Pressure Position Supine 03/11/20 00:25 Pulse Oximetry 100 03/11/20 00:25 Oxygen Delivery Method Room Air 03/11/20 00:25 Oxygen Flow Rate 0 03/11/20 00:25 Pain Level 0 03/11/20 00:25 Lab/Test Results Lab/Test Results: Laboratory Tests Range/Units 03/11/20 00:30 WBC (4.4-10.8) k/cumm 6.25 RBC (4.50-6.00) m/cumm 4.70 Hgb (13.5-17.5) g/dL 15.5 Hct (40.0-50.0) % 45.0 MCV (80-95) fL 95.7 H MCH (27.0-33.0) pg 33.0 MCHC (32.0-36.0) g/dL 34.4 RDW (11.8-14.1) % 12.3 Plt Count (130-400) x1000/uL 194 MPV (8.0-11.0) fL 11.1 H Immature Gran % % 0.3 Neutrophils % 46.4 Lymphocytes % 40.8 Monocytes % 8.8 Eosinophils % 3.4 Basophils % 0.3 Absolute Neutrophils (1.2-6.7) k/cumm 2.90 Absolute Lymphocytes (1.2-3.4) k/cumm 2.55 Absolute Monocytes (0.11-0.7) k/cumm 0.55 Absolute Eosinophils (0.0-0.7) k/cumm 0.21 Absolute Basophils (0.0-0.2) k/cumm 0.02
[2020-03-11 00:57] LABS: PTT Activated 23.2 sec (21.0-31.4); Prothrombin Time 9.9 sec (9.3-11.0)
[2020-03-11 01:08] LABS: ALT 29 U/L (16-63); AST 23 U/L (15-37); Albumin 4.2 g/dL (3.4-5.0); Alkaline Phosphatase 49 U/L (46-116); BUN 19 mg/dL (7-18); Bilirubin, Total 0.4 mg/dL (0.2-1.0); CREATININE 1.13 mg/dL (0.70-1.30); Calcium 9.2 mg/dL (8.5-10.1); Chloride 104 mmol/L (98-107); Glucose 93 mg/dL (74-106); Magnesium 2.1 mg/dL (1.8-2.4); NT-proBNP 122 pg/mL (<300); Potassium 3.5 mmol/L (3.5-5.1); Sodium 141 mmol/L (136-145); TSH (W/Ref FT4) 3.15 uIU/mL (0.36-3.74); Total Protein 7.4 g/dL (6.4-8.2)
[2020-03-11 01:09] LABS: Troponin I < 0.05 ng/mL (<0.06)
--- NOTE | 2020-03-11 01:30 | RT.EKG_ITS ---
APPROVED REPORT Exam: Resting ECG Patient Location: E HR:146 bpm ECG Measurements Heart Rate 146 AXIS LA 101 P 0 QRSd 81 QRS 59 QT 308 T -71 QTc 473 <Conclusion> EKG 1: 59 Atrial fibrillation, rate 146, LA 101, QRS 81, QTc 308, no evidence of significant ST elevation or de pression in regards to STEMI. Still appears to be a delta wave in V4 through V6,
[2020-03-11] MEDS: MAGNESIUM SULFATE 2 GM/50 ML BAG IVPB (01:39)
--- NOTE | 2020-03-11 02:41 | NUR.NOTE ---
Nursing Note: 0150: Magnesium completed. Started Ibutilide 1mg infusion. 0200- Ibutilide completed, no rhythm change. Repeat EKG obtained. 0202- Second 1mg Ibutilide infusion started. 0207- Ibutilide infusion stopped as patient converted to NSR with a heart rate in the 80s.
== END 2020-03-11 02:40 | disposition short-term general hospital (02) ==
PROVIDERS: Emergency Provider Student in an Organized Health Care Education/Training Program; PCP Family Medicine
DX: I48.91 Unspecified atrial fibrillation (principal); I47.2 Ventricular tachycardia; R94.31 Abnormal electrocardiogram [ECG] [EKG]; R00.2 Palpitations
CPT/HCPCS: 36415; 80053; 93005; 96361; 96365; 96375; 99291; 83735; 83880; 84443; 84484; 85025; 85610; 85730; 93010; J1742

== ENCOUNTER 2020-12-21 13:39 | Outpatient (CLI) | payer MEDICARE, OTHER, SELFPAY ==
--- NOTE | 2020-12-21 10:45 | DI.RAD_ITS ---
EXAM: XR KNEE LT 4V AP,LAT,YESICA,PAT CLINICAL HISTORY: L knee pain. TECHNIQUE: 2D digital imaging was performed. COMPARISON: No exams were available for comparison FINDINGS: There is no evidence of acute fracture or prominent joint effusion. Sesamoid bone is noted within th e lower patellar ligament. Mild degenerative changes are noted in the medial compartment. Bone dens ity normal. No osseous lesions IMPRESSION: DATA REPOSITORY: RADIATION DOSE DELIVERED:
== END 2020-12-21 13:40 | disposition home or self-care (01) ==
LOC: DIORS 13:39
PROVIDERS: PCP Family Medicine; Referring Provider Nurse Practitioner Family; Visit Provider Student in an Organized Health Care Education/Training Program
DX: M17.12 Unilateral primary osteoarthritis, left knee (principal); M25.562 Pain in left knee
CPT/HCPCS: 99213; 73564

== ENCOUNTER 2021-04-19 15:29 | Outpatient (REF) | payer MEDICARE, OTHER, SELFPAY ==
[2021-04-19 15:05] LABS: Abs Immature Grans 0.03 10^3/uL (0.0-0.06); Absolute Basophil Count 0.02 10^3/uL (0.0-0.2); Absolute Eosinophil Count 0.09 10^3/uL (0.0-0.7); Absolute Lymphocyte Count 0.99 10^3/uL (1.2-3.4); Absolute Monocyte Count 0.44 10^3/uL (0.1-0.8); Absolute Neutrophil Count 3.25 10^3/uL (1.2-6.7); Basophils % 0.4; Eosinophils % 1.9; HCT 42.3 % (40.0-50.0); Immature Grans % 0.6; Lymphocytes % 20.5; MCH 32.7 pg (27.0-33.0); MCHC 33.1 % (32.0-36.0); MCV 98.8 fL (80-95); MPV 11.2 fL (8.0-11.0); Monocytes % 9.1; Neutrophils % 67.5; Nucleated RBC 0 %; Platelet Count 209 10^3/uL (130-400); RBC 4.28 10^6/uL (4.36-5.78); RDW 12.2 % (11.8-14.1); RDW-SD 44.6 fL; WBC 4.82 10^3/uL (4.4-10.8)
[2021-04-19 15:24] LABS: Anion Gap 8.2 mmol/L (3-11); BUN 21 mg/dL (7-18); CO2 26.8 mmol/L (21.0-32.0); Chloride 104 mmol/L (98-107); Glucose 91 mg/dL (74-106); Sodium 139 mmol/L (136-145)
[2021-04-19 19:42] LABS: C Diff PCR Negative (Negative)
[2021-04-20 00:30] LABS: Campylobacter PCR Negative (Negative); Salmonella PCR Negative (Negative); Shiga Toxin PCR Negative (Negative); Shigella/Enteroinvasive Ecoli Negative (Negative)
[2021-04-20 16:26] LABS: COVID-19 RT-PCR UVMMC Result Negative (Negative)
== END 2021-04-19 15:30 | disposition home or self-care (01) ==
LOC: LBN 15:29
PROVIDERS: PCP Family Medicine; Visit Provider Physician Assistant Medical
DX: R19.7 Diarrhea, unspecified (principal); Z20.822 Contact with and (suspected) exposure to COVID-19
CPT/HCPCS: 80048; 87329; 87493; 87505; U0003; U0005; 85025; 87177

== ENCOUNTER 2021-08-23 10:11 | Emergency (ER) | payer MEDICARE, OTHER, SELFPAY ==
--- NOTE | 2021-08-23 10:00 | RT.EKG_ITS ---
APPROVED REPORT Exam: Resting ECG Reason for Exam: palpitations Patient Location: E HR:79 bpm ECG Measurements Heart Rate 79 AXIS AL 164 P 43 QRSd 82 QRS 78 QT 377 T 65 QTc 432 Conclusion Sinus rhythm...normal P axis, V-rate 60- 99 Ventricular premature complex...V complex w/ short R-R interval
[2021-08-23 10:14] VITALS: BP 145/81; PULSE 81; RESP 15; TEMP 36.9; O2SAT 100
--- NOTE | 2021-08-23 10:22 | W.ED.GENAD ---
Discharge Plan Disposition Patient Disposition: HOME Condition: Stable Discharge Details Clinical Impression: Palpitation Primary Care Provider: Lubna Matthews V ED Provider: Shruthi Peña Home Meds and New Rx's Prescriptions: Continued diphenhydramine HCl 12.5 MG/5 ML elixir 12.5 mg PO HS PRNRF: 0 sildenafil 25 mg Tablet 25 mg PO DAILY PRNRF: 0 Discharge Instructions Instructions: Heart Palpitations (ED) Additional Instructions: Your labs and imaging are reassuring at this time. Concerned that your palpitations may be associated with the premature ventricular contractions that we witnessed when you first arrived. Please continue to log your symptoms and follow recommendations from the respiratory team about your Holter Monitor. If you develop fevers/chills, chest pain, shortness of breath or other new/worsening symptoms please seek care urgently once again. Referrals: Lubna Matthews MD [Primary Care Provider] - Medical Decision Making Patient is a pleasant 71-year-old gentleman presenting today with chief complaint of intermittent palpitations. Initially began yesterday morning while having intercourse with his . States that it was intermittent throughout the course of the day later. He does state that he went for a hike in the afternoon and the palpitations are actually diminished. States that he felt quite well when he was physically active in the afternoon. Has continued to have this unusual sensation in his chest since then. Patient is status post ablation summer 2019. 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 Has not had any lightheadedness or dizziness. Denies any chest pain. He states that he has some chronic left shoulder pain associated with all clavicular injury. Is not associating this with any chest comfort or exertional times. It did not wake him from sleep at all last night. No change with food. Denies any shortness of breath. No nausea or vomiting. States that he did have a soft bowel movement this morning but this is not atypical for him. EKG reviewed with Dr. Encarnacion. Patient is in normal sinus rhythm with a heart rate of 79. No ischemic changes. Patient did have 1 PVC. Reviewed notes from [facility]. 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 That was also when he was having the atrial fibrillation for which he was chemically cardioverted while here. On exam, patient appears nontoxic. Lungs are clear, normal cardiac auscultation. No bruits noted. No lower extremity edema or calf tenderness. 2+ distal pulses in all extremities. The symptoms did initially begin during times of exertion, certainly considering ACS. However, patient also had improvement of his symptoms when he physically active. He does have PVCs noted while I am examining the patient he does have some mild symptoms associated with these. This potentially be healing. I do not see any evidence to suggest an acute dysrhythmia at this time for his recurrence of atrial fibrillation but we will continue to monitor him for this. Also consider potential electrolyte abnormality or thyroid dysfunction. Will obtain baseline labs, chest x-ray and plan for repeat troponin. No respiratory symptoms, no times of being sedentary, no indication for PE at this time. Patient is not anticoagulated, will give ASA. Labs reviewed. No leukocytosis. Stable, stable H&H. No significant abnormalities on CMP. TSH within normal limits, troponin within normal limits. Plan for delta troponin. Chest x-ray reviewed by radiologist: FINDINGS: Heart size is normal. The mediastinum is not widened. Lungs are clear. No infiltrates nor pleural effusions. The previously described finding in the left lung base region (described on chest x-ray 11/15/2019 shown to be negative on the subsequent CT scan) is unchanged. IMPRESSION: No acute pulmonary findings. Repeat troponin remains WNL. Holter monitor in place. Discussed these findings with the patient. Advised the palpitations may be associated with his frequent PVCs. Encourage hydration. Encouraged that he should follow-up with primary care within the next week for reevaluation. At that time, he may also be able to discuss findings from the Holter monitor. Strict return precautions were discussed. All his questions and concerns were addressed and he is in agreement with plan. HPI General Mode of arrival: ambulatory. Date/Time Provider Initiated Documentation: 08/23/21 10:11. Limitations to Documentation: no limitations. Information obtained by: patient, RN notes reviewed and old records reviewed. History of Present Illness 71 year old M presents to the emergency department with the chief complaint of palpitations, described as mild, Quality is described as other (denies pain), and is localized to the chest. Patient reports no radiation. Patient started experiencing this day(s) (1) and it has been intermittent. No relieving factors improve symptom(s), No exacerbating factors reported (came on during exertion but has not had exertional symptoms since then) . Patient notes denies chest pain, cough, fever/chills, loss of appetite, nausea/vomiting, rash and shortness of breath. Patient did receive the following treatments prior to arrival, none Related Data Home Medications Medication Instructions Recorded Confirmed diphenhydramine HCl 12.5 mg PO HS PRN 12/21/16 08/23/21 sildenafil 25 mg PO DAILY PRN 08/23/21 08/23/21 Allergies Allergy/AdvReac Type Severity Reaction Status Date / Time dairy products AdvReac flu like Uncoded 12/21/20 10:24 symptoms for days General Stated Complaint: Palpitatns BLANK: 3 Review of Systems Constitutional Constitutional: Reports as per HPI, Denies chills, Denies fever(s), Denies headache(s), Denies lethargy and Denies poor appetite ENT Ears, Nose, Mouth, and Throat: Denies dizziness and Denies headache(s) Cardiovascular Cardiovascular: Reports as per HPI, Denies chest pain, Denies chest pain at rest, Denies chest pain with activity, Denies leg edema, Denies lightheadedness, Denies radiating jaw, neck or arm pain, Reports palpitations (intermittent palpitations), Denies dyspnea and Denies dyspnea on exertion Respiratory Respiratory: Reports as per HPI, Denies chest congestion, Denies cough, Denies pain on inspiration, Denies pain with cough, Denies dyspnea and Denies dyspnea on exertion Gastrointestinal Gastrointestinal: Reports as per HPI, Denies abdominal pain, Denies diarrhea, Denies nausea and Denies vomiting Genitourinary Genitourinary: Denies system reviewed and no additional complaints, except as documented (denies change in urinary habits) Musculoskeletal Musculoskeletal: Reports as per HPI and Denies back pain Integumentary/Breasts Skin/Breast: Reports as per HPI and Denies rash Neurologic Neurologic: Reports as per HPI, Denies dizziness and Denies headache(s) PFSH All Active Problems (Updated 08/23/21 @ 13:42 by ELSA Salgado) Palpitation (Acute) Primary osteoarthritis of left knee (Acute) Surgical History Hernia Repair, Incisional r side Social History (Reviewed 08/23/21 @ 13:59 by BARRETT Salgado Smoking/Tobacco Use Status: Former Tobacco Use Smoking risk assessment performed?: Yes Alcohol Intake: current Alcohol Intake frequency: 0-2 drinks per day Alcohol type: beer, wine and hard liquor Drug use: Never Substance use type: does not use Do you feel safe at home: Yes Do you feel safe in your relationship?: Yes Exam Const General: cooperative, healthy appearing, comfortable, no acute distress and well developed Nutritional Appearance: average body habitus and well nourished Orientation: alert, awake and oriented x3 Chest Chest: normal inspection of the chest, normal palpation of entire chest wall and no crepitus Resp Effort & Inspection: normal respiratory effort, able to speak in complete sentences and no respiratory distress Auscultation: clear to auscultation bilaterally, no rales, no rhonchi and no wheezes Cardio Rate: regular rate Rhythm: regular rhythm Heart Sounds: S1 normal and S2 normal GI Inspection: normal to inspection, no edema and non-distended Palpation: soft, no hepatosplenomegaly, not firm, no guarding, not rigid and nontender Auscultation: normal bowel sounds Skin General skin exam: no rashes or lesions noted Trauma: no lacerations or abrasions Neuro General: patient alert, patient awake and patient oriented x3 Cognition: normal cognition Speech: speech normal Gait: normal gait Extrem General: normal to inspection, capillary refill normal, no pedal edema, no calf tenderness and normal gait Psych Appearance: grossly normal and well kempt Mental Status: mental status grossly normal Speech and Movement: speech and movement normal Course Vital Signs Vital signs: Vital Signs Temperature 36.9 C 08/23/21 10:14 Pulse 81 08/23/21 10:14 Respiratory Rate 15 08/23/21 10:14 Blood Pressure 145/81 H 08/23/21 10:14 Pulse Oximetry 100 08/23/21 10:14 Temperature 36.9 C 08/23/21 10:14 Temperature Source Temporal Artery Scan 08/23/21 10:14 Pulse 81 08/23/21 10:14 Respiratory Rate 15 08/23/21 10:14 Respiratory Effort Non-Labored 08/23/21 10:17 Blood Pressure 145/81 H 08/23/21 10:14 Blood Pressure Position Sitting 08/23/21 10:14 Pulse Oximetry 100 08/23/21 10:14 Oxygen Delivery Method Room Air 08/23/21 10:14 Oxygen Flow Rate 0 08/23/21 10:14 Pain Level 0 08/23/21 10:14 PAWSS Have you Been Recently Intoxicated or Drunk Within the Last 30 days?: Yes Have you Ever Experienced Previous Episodes of Alcohol Withdrawal?: No Have you ever Experienced Withdrawal Seizures?: No Have you ever Experienced Delirium Tremens(DT)s?: No Have you ever undergone Alcohol Rehabilitation Treatment (i.e, inpt ot outpatient treatment programs)?: No Have you ever Experienced Blackouts?: No Have you ever Combined Alcohol with other Downers within the last 90 days?: No Have you ever Combined Alcohol with any other Substance of Abuse during the last 90 days?: No Positive Blood Alcohol level on Presentation? [PCS.BAL]: No Evidence of Increased Autonomic Activity (i.e. HR>120, tremor, sweating, agitation, nausea)?: No Result: 1
[2021-08-23 10:41] LABS: Abs Immature Grans 0.04 10^3/uL (0.0-0.06); Absolute Basophil Count 0.04 10^3/uL (0.0-0.2); Absolute Eosinophil Count 0.13 10^3/uL (0.0-0.7); Absolute Lymphocyte Count 1.28 10^3/uL (1.2-3.4); Absolute Monocyte Count 0.37 10^3/uL (0.1-0.8); Absolute Neutrophil Count 3.36 10^3/uL (1.2-6.7); Basophils % 0.8; Eosinophils % 2.5; HCT 46.1 % (40.0-50.0); HGB 15.5 g/dL (13.5-17.5); Immature Grans % 0.8; Lymphocytes % 24.5; MCH 32.9 pg (27.0-33.0); MCHC 33.6 % (32.0-36.0); MCV 97.9 fL (80-95); MPV 10.7 fL (8.0-11.0); Monocytes % 7.1; Neutrophils % 64.3; Nucleated RBC 0 %; Platelet Count 192 10^3/uL (130-400); RBC 4.71 10^6/uL (4.36-5.78); RDW 11.9 % (11.8-14.1); WBC 5.22 10^3/uL (4.4-10.8)
[2021-08-23] MEDS: Aspirin 81 MG CHEW 324 MG CH (10:42)
[2021-08-23 10:52] LABS: ALT 34 U/L (16-63); AST 26 U/L (15-37); Albumin 4.4 g/dL (3.4-5.0); Alkaline Phosphatase 52 U/L (46-116); Anion Gap 7.8 mmol/L (3-11); BUN 21 mg/dL (7-18); Bilirubin, Total 0.6 mg/dL (0.2-1.0); CO2 29.2 mmol/L (21.0-32.0); CREATININE 1.2 mg/dL (0.70-1.30); Calcium 9.1 mg/dL (8.5-10.1); Chloride 100 mmol/L (98-107); Estimated GFR 59.68 (mL/min/1.73m2); Glucose 187 mg/dL (74-106); Potassium 4.1 mmol/L (3.5-5.1); Sodium 137 mmol/L (136-145); Total Protein 7.5 g/dL (6.4-8.2)
--- NOTE | 2021-08-23 10:57 | DI.RAD_ITS ---
Exam(s) XR CHEST 2V PA LATERAL EXAM: XR CHEST 2V PA LATERAL CLINICAL HISTORY: palpitations. TECHNIQUE: 2D digital imaging was performed. COMPARISON: CR,XR XR CHEST 2V PA LATERAL from 11/15/[address] CHEST W from 12/16/2019 FINDINGS: Heart size is normal. The mediastinum is not widened. Lungs are clear. No infiltrates nor pleural effusions. The previously described finding in the left lung base region (described on chest x-ray 11/15/2019 sh own to be negative on the subsequent CT scan) is unchanged. IMPRESSION: No acute pulmonary findings. DATA REPOSITORY: RADIATION DOSE DELIVERED:
[2021-08-23 11:01] LABS: Magnesium 2.4 mg/dL (1.8-2.4); TSH (W/Ref FT4) 2.01 uIU/mL (0.36-3.74); Troponin I < 50 ng/L (<or=60)
--- NOTE | 2021-08-23 13:15 | RT.EKG_ITS ---
APPROVED REPORT Exam: Resting ECG Reason for Exam: 2nd trop chest pain Patient Location: E HR:64 bpm ECG Measurements Heart Rate 64 AXIS [place] 172 P 47 QRSd 79 QRS 69 QT 398 T 69 QTc 411 Conclusion Sinus rhythm...normal P axis, V-rate 60- 99
[2021-08-23 13:33] LABS: Troponin I < 50 ng/L (<or=60)
[2021-08-23 13:52] VITALS: BP 145/81; PULSE 81; RESP 15; TEMP 36.9; O2SAT 100
== END 2021-08-23 13:55 | disposition home or self-care (01) ==
PROVIDERS: Emergency Provider Physician Assistant; PCP Family Medicine
DX: R00.2 Palpitations (principal); R07.89 Other chest pain
CPT/HCPCS: 36415; 80053; 93005; 99284; 71046; 83735; 84443; 84484; 85025; 93010; 93225

== ENCOUNTER 2021-08-23 12:33 | Outpatient (RCR) | payer MEDICARE, OTHER, SELFPAY ==
--- NOTE | 2021-08-23 13:00 | HOLTER_ITS ---
APPROVED REPORT Conclusion This is a 48-hour Holter monitor reportedly ordered for palpitations Predominant rhythm was sinus with an average heart rate of 71, minimum was 56, maximum 99 There were rare ventricular ectopic beats There were very rare atrial premature beats. 5 self-limited atrial runs occurred, the longest of i ch was 7 beats in duration; these were asymptomatic There was no atrial fibrillation, no high-grade AV block, no pauses greater than 3 seconds Patient symptoms corresponded to sinus rhythm in the 70s
== END 2021-08-27 23:59 | disposition home or self-care (01) ==
LOC: RT 12:33
PROVIDERS: PCP Family Medicine; Visit Provider Family Medicine
DX: R00.2 Palpitations (principal); I49.1 Atrial premature depolarization
CPT/HCPCS: 93227; 93225; 93226

== ENCOUNTER 2021-08-25 17:09 | Emergency (ER) | payer MEDICARE, OTHER, SELFPAY ==
[2021-08-25] VITALS (28 sets, daily range): BP systolic 128–148; BP diastolic 73–77; PULSE 61–92; RESP 9–40; TEMP 36.2; O2SAT 97–100
--- NOTE | 2021-08-25 17:00 | RT.EKG_ITS ---
APPROVED REPORT Exam: Resting ECG Reason for Exam: rapid heart rate Patient Location: E HR:72 bpm ECG Measurements Heart Rate 72 AXIS NE 159 P 41 QRSd 82 QRS 69 QT 392 T 62 QTc 429 Conclusion Sinus rhythm...normal P axis, V-rate 60- 99 Multiple ventricular premature complexes...V complexes w/ short R-R intervls
[2021-08-25 17:41] LABS: Abs Immature Grans 0.04 10^3/uL (0.0-0.06); Absolute Basophil Count 0.03 10^3/uL (0.0-0.2); Absolute Eosinophil Count 0.11 10^3/uL (0.0-0.7); Absolute Lymphocyte Count 1.74 10^3/uL (1.2-3.4); Absolute Monocyte Count 0.57 10^3/uL (0.1-0.8); Absolute Neutrophil Count 3.48 10^3/uL (1.2-6.7); Basophils % 0.5; Eosinophils % 1.8; HCT 43.7 % (40.0-50.0); HGB 14.4 g/dL (13.5-17.5); Immature Grans % 0.7; Lymphocytes % 29.1; MCH 32.1 pg (27.0-33.0); MCV 97.3 fL (80-95); Monocytes % 9.5; Neutrophils % 58.4; Nucleated RBC 0 %; Platelet Count 191 10^3/uL (130-400); RBC 4.49 10^6/uL (4.36-5.78); RDW 11.9 % (11.8-14.1); RDW-SD 43.1 fL; WBC 5.97 10^3/uL (4.4-10.8)
[2021-08-25 18:04] LABS: ALT 27 U/L (16-63); AST 20 U/L (15-37); Albumin 4.2 g/dL (3.4-5.0); Alkaline Phosphatase 49 U/L (46-116); Anion Gap 8.3 mmol/L (3-11); BUN 26 mg/dL (7-18); Bilirubin, Direct 0.1 mg/dL (0.0-0.2); Bilirubin, Total 0.3 mg/dL (0.2-1.0); CO2 27.7 mmol/L (21.0-32.0); Calcium 8.9 mg/dL (8.5-10.1); Chloride 101 mmol/L (98-107); Glucose 104 mg/dL (74-106); Magnesium 2.3 mg/dL (1.8-2.4); Sodium 137 mmol/L (136-145); TSH (W/Ref FT4) 3.38 uIU/mL (0.36-3.74); Total Protein 7.1 g/dL (6.4-8.2); Troponin I < 50 ng/L (<or=60)
[2021-08-25] MEDS: Normal Saline 500 ML IV ×2 (18:04→19:04)
--- NOTE | 2021-08-25 18:14 | ED.GENADUL_ITS ---
Discharge Plan Disposition Patient Disposition: HOME Condition: Stable Discharge Details Clinical Impression: Palpitation Primary Care Provider: Lubna Matthews V ED Provider: Alan Vega Home Meds and New Rx's Prescriptions: Continued diphenhydramine HCl 12.5 MG/5 ML elixir 12.5 mg PO HS PRNRF: 0 sildenafil 25 mg Tablet 25 mg PO DAILY PRNRF: 0 Discharge Instructions Instructions: Heart Palpitations (ED) Additional Instructions: If you have a return of your symptoms you should return immediately while the symptoms are occurring so that we can perform testing during these episodes. Otherwise all of your testing is reassuring for no signs of acute heart attack or abnormal changes noted on ekg monitor while here. It is important that you follow-up with your primary care provider preferably in the next 2 to 3 days if possible to review your findings of your previous Holter monitor. Discharge Data Discharge Date/Time-TO BE ENTERED AT DEPARTURE: 08/25/21 21:17 Medical Decision Making Patient presenting to the emergency department for chief complaint of palpitations and skipped beats. Patient reports that he was initially evaluated 2 days ago and had Holter monitor placed. He returned the Holter monitor this a.m. and then this afternoon started noticing a significant return of palpitations. He rested and they finally mostly resolved but due to the prolonged duration of symptoms patient is now presenting to the emergency depa rtment. He does state slight dizziness and some anxiety during the episode but denies any syncope, severe chest pain, or neurological symptoms. Physical exam is unremarkable but of notation is that on ekg monitor. Patient is having intermittent PVCs. Please see physician documentation of EKG interpretation that shows PVC without STEMI. Plan to do labs including TSH given repetitive episodes of palpitations and anxiety and troponin to look for any ischemic changes that could have occurred during prolonged cardiac episode. Patient is denying any need for pain medication at this time so we will continue to monitor. Review of labs is reassuring and initial troponin is negative. Plan on doing delta troponin. Patient was given fluid bolus to see if this helps with symptoms. Patient remained stable with continued intermittent PVCs but stated almost full resolution of symptoms. Patient was placed upon primary care follow-up list to follow-up on recent Holter monitor but at this time I do not feel the patient needs another Holter monitor unless symptoms again return as patient did report that he did have some episodes while wearing monitor. Close monitoring of symptoms along with return and follow-up precautions were discussed with patient and patient was agreeable to discharge and stated no concern about the plan. After discussion of diagnosis and plan of care patient has no further needs, questions, or concerns and states clear understanding to return to the emergency department for any worsening symptoms. Lab Data Labs: Laboratory Tests Range/Units 08/25/21 08/25/21 08/25/21 17:25 17:25 20:25 WBC (4.4-10.8) 10^3/uL 5.97 RBC (4.36-5.78) 10^6/uL 4.49 Hgb (13.5-17.5) g/dL 14.4 Hct (40.0-50.0) % 43.7 MCV (80-95) fL 97.3 H MCH (27.0-33.0) pg 32.1 MCHC (32.0-36.0) % 33.0 RDW (11.8-14.1) % 11.9 Plt Count (130-400) 10^3/uL 191 MPV (8.0-11.0) fL 11.0 Immature Gran % 0.7 Neutrophils % 58.4 Lymphocytes % 29.1 Monocytes % 9.5 Eosinophils % 1.8 Basophils % 0.5 Nucleated RBC % % 0 Absolute Neutrophils (1.2-6.7) 10^3/uL 3.48 Absolute Lymphocytes (1.2-3.4) 10^3/uL 1.74 Absolute Monocytes (0.1-0.8) 10^3/uL 0.57 Absolute Eosinophils (0.0-0.7) 10^3/uL 0.11 Absolute Basophils (0.0-0.2) 10^3/uL 0.03 Sodium (136-145) mmol/L 137 Potassium (3.5-5.1) mmol/L 4.0 Chloride (98-107) mmol/L 101 Carbon Dioxide (21.0-32.0) mmol/L 27.7 Anion Gap (3-11) mmol/L 8.3 BUN (7-18) mg/dL 26 H Creatinine (0.70-1.30) mg/dL 1.0 Estimated GFR/1.73 m2 (mL/min/1.73m2) >= 60.00 Glucose (74-106) mg/dL 104 D Calcium (8.5-10.1) mg/dL 8.9 Magnesium (1.8-2.4) mg/dL 2.3 Total Bilirubin (0.2-1.0) mg/dL 0.3 Conjugated Bilirubin (0.0-0.2) mg/dL 0.1 AST (15-37) U/L 20 ALT (16-63) U/L 27 Alkaline Phosphatase (46-116) U/L 49 Troponin I (<or=60) ng/L < 50 < 50 Total Protein (6.4-8.2) g/dL 7.1 Albumin (3.4-5.0) g/dL 4.2 TSH (0.36-3.74) uIU/mL 3.38 HPI General Mode of arrival: ambulatory . Date/Time Provider Initiated Documentation: 08/25/21 17:14 . Limitations to Documentation: no limitations . Information obtained by: patient . History of Present Illness 71 year old M presents to the emergency department with the chief complaint of Irregular heart rate, described as moderate and similar to prior episodes, Quality is described as other (Denies pain), Patient started experiencing this day(s) (4) and it has been intermittent. No relieving factors improve symptom(s), No exacerbating factors reported . Patient notes denies syncope. Patient did receive the following treatments prior to arrival, none Related Data Home Medications Medication Instructions Recorded Confirmed diphenhydramine HCl 12.5 mg PO HS PRN 12/21/16 08/25/21 sildenafil 25 mg PO DAILY PRN 08/23/21 08/25/21 Allergies Allergy/AdvReac Type Severity Reaction Status Date / Time dairy products AdvReac flu like Uncoded 08/25/21 17:23 symptoms for days General Stated Complaint: Palpitatns BLANK: 2 Review of Systems Constitutional Constitutional: Denies chills, Denies fever(s) and Denies malaise Cardiovascular Cardiovascular: Reports as per HPI, Denies chest pain, Denies chest pain with activity, Denies syncope, Denies rapid heart rate, Denies edema, Reports irregular heart rhythm, Reports palpitations and Denies dyspnea Respiratory Respiratory: Denies cough, Denies hemoptysis and Denies dyspnea Gastrointestinal Gastrointestinal: Denies abdominal pain, Denies nausea and Denies vomiting Neurologic Neurologic: Denies syncope Psychiatric Psychiatric: Denies anxiety Endocrine Endocrine: Denies cold intolerance, Denies heat intolerance and Reports palpitations PFSH All Active Problems (Updated 08/25/21 @ 21:03 by Alan eVga NP) Palpitation (Acute) Primary osteoarthritis of left knee (Acute) Surgical History Hernia Repair, Incisional r side Social History Smoking/Tobacco Use Status: Former Tobacco Use Smoking risk assessment performed?: Yes Alcohol Intake: current Alcohol Intake frequency: 0-2 drinks per day Alcohol type: beer, wine and hard liquor Drug use: Never Substance use type: does not use Do you feel safe at home: Yes Do you feel safe in your relationship?: Yes Exam Const General: cooperative, healthy appearing, comfortable, no acute distress, not diaphoretic and not ill appearing Nutritional Appearance: average body habitus Orientation: alert, awake and oriented x3 Limitations: mental status not altered Neck Neck: normal visual inspection, full ROM, trachea midline, supple and no anterior neck swelling Thyroid: thyroid normal Carotids: normal carotid upstroke and no bruits Chest Chest: normal inspection of the chest Resp Effort & Inspection: normal respiratory effort and able to speak in complete sentences Auscultation: clear to auscultation bilaterally Cardio Jugular venous pressure: no JVD Palpation: normal PMI Rate: regular rate Rhythm: regular rhythm Heart Sounds: S1 normal, S2 normal, no click, no gallops, no murmurs and no rubs Bruits: no abdominal aortic bruits and no carotid bruits Pulses: radial pulses present bilaterally 2+ GI Inspection: normal to inspection Palpation: soft, no aortic enlargement, no pulsatile masses and nontender Auscultation: normal bowel sounds Skin General skin exam: no rashes or lesions noted Neuro General: patient alert, patient awake, patient oriented x3, tone normal and moves all extremities Course Vital Signs Vital signs: Vital Signs Temperature 36.2 C L 08/25/21 17:15 Pulse 72 08/25/21 17:15 Respiratory Rate 16 08/25/21 17:15 Blood Pressure 148/77 H 08/25/21 17:15 Pulse Oximetry 100 08/25/21 17:15 Temperature 36.2 C L 08/25/21 17:15 Temperature Source Skin 08/25/21 17:15 Pulse 72 08/25/21 17:15 Respiratory Rate 16 08/25/21 17:15 Respiratory Effort 08/25/21 17:15 Blood Pressure 148/77 H 08/25/21 17:15 Blood Pressure Position Supine 08/25/21 17:15 Pulse Oximetry 100 08/25/21 17:15 Pain Level 1 08/25/21 17:15 Lab/Test Results Lab/Test Results: Laboratory Tests Range/Units 08/25/21 08/25/21 17:25 17:25 WBC (4.4-10.8) 10^3/uL 5.97 RBC (4.36-5.78) 10^6/uL 4.49 Hgb (13.5-17.5) g/dL 14.4 Hct (40.0-50.0) % 43.7 MCV (80-95) fL 97.3 H MCH (27.0-33.0) pg 32.1 MCHC (32.0-36.0) % 33.0 RDW (11.8-14.1) % 11.9 Plt Count (130-400) 10^3/uL 191 MPV (8.0-11.0) fL 11.0 Immature Gran % 0.7 Neutrophils % 58.4 Lymphocytes % 29.1 Monocytes % 9.5 Eosinophils % 1.8 Basophils % 0.5 Nucleated RBC % % 0 Absolute Neutrophils (1.2-6.7) 10^3/uL 3.48 Absolute Lymphocytes (1.2-3.4) 10^3/uL 1.74 Absolute Monocytes (0.1-0.8) 10^3/uL 0.57 Absolute Eosinophils (0.0-0.7) 10^3/uL 0.11 Absolute Basophils (0.0-0.2) 10^3/uL 0.03 Sodium (136-145) mmol/L 137 Potassium (3.5-5.1) mmol/L 4.0 Chloride (98-107) mmol/L 101 Carbon Dioxide (21.0-32.0) mmol/L 27.7 Anion Gap (3-11) mmol/L 8.3 BUN (7-18) mg/dL 26 H Creatinine (0.70-1.30) mg/dL 1.0 Estimated GFR/1.73 m2 (mL/min/1.73m2) >= 60.00 Glucose (74-106) mg/dL 104 D Calcium (8.5-10.1) mg/dL 8.9 Magnesium (1.8-2.4) mg/dL 2.3 Total Bilirubin (0.2-1.0) mg/dL 0.3 Conjugated Bilirubin (0.0-0.2) mg/dL 0.1 AST (15-37) U/L 20 ALT (16-63) U/L 27 Alkaline Phosphatase (46-116) U/L 49 Troponin I (<or=60) ng/L < 50 Total Protein (6.4-8.2) g/dL 7.1 Albumin (3.4-5.0) g/dL 4.2 TSH (0.36-3.74) uIU/mL 3.38
[2021-08-25 20:51] LABS: Troponin I < 50 ng/L (<or=60)
--- NOTE | 2021-08-26 03:00 | NUR.NOTE ---
Nursing Note: needs to follow up with pcp and i put referral in the mailbox of care management
--- NOTE | 2021-08-26 09:43 | PDOC.ERCMACT ---
- If Service Date Differs Date of service: 08/26/21 Time of Service: 09:43 Care Management Activity Note Bryan is seen in the ED for palpitations. At the request of ED provider, CM contacts Lubna Matthews MD, of [facility] to request they schedule patient for a follow up appointment.
== END 2021-08-25 21:17 | disposition home or self-care (01) ==
PROVIDERS: Emergency Provider Nurse Practitioner Family; PCP Family Medicine
DX: R00.2 Palpitations (principal); F41.9 Anxiety disorder, unspecified
CPT/HCPCS: 36415; 80053; 80076; 93005; 96360; 96361; 99284; 83735; 84443; 84484; 85025; 93010; 93226; 99283

== ENCOUNTER 2021-10-25 13:36 | Outpatient (REF) | payer MEDICARE, OTHER, SELFPAY ==
[2021-10-25 14:14] LABS: TSH (W/Ref FT4) 1.68 uIU/mL (0.36-3.74)
[2021-10-25 14:28] LABS: Vitamin D 25 Total 22.7 ng/mL (30-100)
[2021-10-25 23:11] LABS: PSA, Screening 4.1 ng/mL (0.0-6.5)
== END 2021-10-25 13:37 | disposition home or self-care (01) ==
LOC: NCHCN 13:36
PROVIDERS: PCP Family Medicine; Visit Provider Nurse Practitioner Family
DX: R53.83 Other fatigue (principal); N40.1 Benign prostatic hyperplasia with lower urinary tract symptoms; Z12.5 Encounter for screening for malignant neoplasm of prostate; M17.12 Unilateral primary osteoarthritis, left knee
CPT/HCPCS: 82306; 84153; 84443

== ENCOUNTER 2022-05-03 18:22 | Outpatient (REF) | payer MEDICARE, OTHER, SELFPAY ==
[2022-05-03 14:56] LABS: Abs Immature Grans 0.03 10^3/uL (0.0-0.06); Absolute Basophil Count 0.04 10^3/uL (0.0-0.2); Absolute Eosinophil Count 0.08 10^3/uL (0.0-0.7); Absolute Lymphocyte Count 1.19 10^3/uL (1.2-3.4); Absolute Monocyte Count 0.47 10^3/uL (0.1-0.8); Absolute Neutrophil Count 2.93 10^3/uL (1.2-6.7); Basophils % 0.8; Eosinophils % 1.7; HCT 43.3 % (40.0-50.0); Immature Grans % 0.6; Lymphocytes % 25.1; MCHC 34.6 % (32.0-36.0); MCV 95 fL (80-95); MPV 11.6 fL (8.0-11.0); Monocytes % 9.9; Neutrophils % 61.9; Platelet Count 198 10^3/uL (130-400); RBC 4.55 10^6/uL (4.36-5.78); RDW 12.2 % (11.8-14.1); RDW-SD 42.7 fL; WBC 4.74 10^3/uL (4.4-10.8)
[2022-05-03 15:04] LABS: ESR 1 mm/hr (0-20)
[2022-05-04 10:47] LABS: Lyme Ab w Rflx to Lyme Confirm Negative (Negative)
[2022-05-06 12:08] LABS: Anaplasma phagocytophilum Negative (Negative); B. miyamotoi PCR Negative (Negative); Babesia divergens/MO-1 Negative (Negative); Babesia duncani Negative (Negative); Babesia microti Negative (Negative); Ehrlichia chaffeensis Negative (Negative); Ehrlichia ewingii/canis Negative (Negative); Ehrlichia muris eauclairensis Negative (Negative)
== END 2022-05-03 18:23 | disposition home or self-care (01) ==
LOC: LBN 18:22
PROVIDERS: PCP Family Medicine; Visit Provider Nurse Practitioner Family
DX: R53.83 Other fatigue (principal)
CPT/HCPCS: 85652; 87798; 85025; 86618

== ENCOUNTER 2022-11-10 15:51 | Outpatient (REF) | payer MEDICARE, OTHER, SELFPAY | END 2022-11-10 15:52 | disposition home or self-care (01) | LOC: NCHCN 15:51 | PROVIDERS: PCP Family Medicine; Visit Provider Family Medicine | DX: N40.1 Benign prostatic hyperplasia with lower urinary tract symptoms (principal); Z12.5 Encounter for screening for malignant neoplasm of prostate; E55.9 Vitamin D deficiency, unspecified | CPT/HCPCS: 82306; 84153 ==

== ENCOUNTER 2023-01-17 01:13 | Outpatient (CLI) | payer MEDICARE, OTHER, SELFPAY ==
--- NOTE | 2023-01-17 08:45 | DI.US_ITS ---
Exam(s) US AAA SCREENING EXAM: US AAA SCREENING CLINICAL HISTORY: FORMER SMOKER, QUIT > 1 YEAR, Z87.891; [facility], Z00.00 COMPARISON: CT ABD PELVIS WITH CONTRAST from 07/08/2014 FINDINGS: Abdominal Aorta: Proximal: 2.0 x 2.0 cm Mid: 1.8 x 2.0 cm Distal: 1.6 x 1.7 cm Iliac's: Right: 0.8 x 0.9 cm Left: 1.1 x 1.0 cm No significant atherosclerotic disease is seen. IMPRESSION: No evidence of abdominal aortic aneurysm. DATA REPOSITORY:
== END 2023-01-17 01:33 ==
LOC: DI 01:14
PROVIDERS: PCP Family Medicine; Visit Provider Nurse Practitioner Family
DX: Z87.891 Personal history of nicotine dependence (principal); Z12.2 Encounter for screening for malignant neoplasm of respiratory organs
CPT/HCPCS: 76706

== ENCOUNTER 2023-12-28 18:45 | Outpatient (REF) | payer MEDICARE, OTHER, SELFPAY ==
[2023-12-28 15:36] LABS: ALT 35 U/L (16-63); AST 30 U/L (15-37); Albumin 3.8 g/dL (3.4-5.0); Alkaline Phosphatase 55 U/L (46-116); Anion Gap 8.7 mmol/L (3-11); BUN 23 mg/dL (7-18); Bilirubin, Total 0.7 mg/dL (0.2-1.0); CO2 27.3 mmol/L (21.0-32.0); CREATININE 1.2 mg/dL (0.70-1.30); Calcium 9.3 mg/dL (8.5-10.1); Chloride 105 mmol/L (98-107); Estimated GFR 63.85 (mL/min/1.73m2); Glucose 78 mg/dL (74-106); Potassium 4.6 mmol/L (3.5-5.1); Sodium 141 mmol/L (136-145); Total Protein 6.8 g/dL (6.4-8.2)
[2023-12-28 15:57] LABS: Calculated LDL 111 mg/dL (<100); Cholesterol 218 mg/dL (<200); HDL Cholesterol 89 mg/dL (40-60); Triglyceride 93 mg/dL (<150)
[2023-12-28 16:37] LABS: Vitamin D 25 Total 49.1 ng/mL (30-100)
[2023-12-28 22:29] LABS: PSA, Screening 6.3 ng/mL (<=6.5)
== END 2023-12-28 18:46 | disposition home or self-care (01) ==
LOC: NCHCN 18:45
PROVIDERS: PCP Family Medicine; Visit Provider Nurse Practitioner Family
DX: E55.9 Vitamin D deficiency, unspecified (principal); Z00.00 Encounter for general adult medical examination without abnormal findings; I99.9 Unspecified disorder of circulatory system; Z12.5 Encounter for screening for malignant neoplasm of prostate
CPT/HCPCS: 80053; 80061; 82306; 84153

== ENCOUNTER → 2024-01-11 09:42 | Outpatient (BNVA) | payer MEDICARE, OTHER, SELFPAY | PROVIDERS: PCP Family Medicine; Referring Provider Family Medicine; Visit Provider Physical Therapy Assistant | DX: Z12.11 Encounter for screening for malignant neoplasm of colon (principal) ==

== ENCOUNTER 2024-01-12 13:36 | Outpatient (REF) | payer MEDICARE, OTHER, SELFPAY ==
[2024-01-15 10:57] LABS: PSA, Diagnostic 3.7 ng/mL (<=6.5)
== END 2024-01-12 13:37 | disposition home or self-care (01) ==
LOC: NCHCN 13:36
PROVIDERS: PCP Family Medicine; Visit Provider Nurse Practitioner Family
DX: N40.1 Benign prostatic hyperplasia with lower urinary tract symptoms (principal)
CPT/HCPCS: 84153

== ENCOUNTER 2024-02-13 08:19 | Day surgery (SDC) | payer MEDICARE, OTHER, SELFPAY ==
[2024-02-13 08:51] VITALS: BP 122/71; PULSE 70; RESP 18; TEMP 36.5; O2SAT 100
--- NOTE | 2024-02-13 09:02 | ANES.PREOP_ITS ---
General Info Date of Service Date Performed: 02/13/24 Height: 5 ft 10 in Weight: 61.8 kg Body Mass Index (BMI): 19.5 Surgical Procedure: Operation Date: 02/13/24 09:05 Proposed Procedure Side Surgeon p Colonoscopy Raúl Galvez MD Actual Procedure Side Surgeon p Colonoscopy Not Applicable Raúl Galvez MD Pre-Op Diagnosis Post-Op Diagnosis screening colonoscopy: Meds Allergies and Home Medications Allergies Allergy/AdvReac Type Severity Reaction Status Date / Time dairy products AdvReac flu like Uncoded 02/13/24 08:41 symptoms for days Home Medication Medication Instructions Recorded sildenafil 25 mg tablet 25 mg PO DAILY PRN 08/23/21 ibuprofen 200 mg capsule (Advil 200 mg PO Q6H PRN 12/15/22 Liqui-Gel) multivitamin (Multiple Vitamins 1 tab PO DAILY 12/15/22 tablet) diphenhydramine HCl 25 mg capsule 25 mg PO Q4H PRN PRN 12/29/23 (Benadryl) bisacodyl 5 mg tablet,delayed 5 mg PO ONCE #4 tabs 01/11/24 release (Dulcolax (bisacodyl)) polyethylene glycol 3350 17 17 g PO ONCE #238 grams 01/11/24 gram/dose oral powder Current Visit Medications: Current Medications Generic Name Dose Route Start Last Admin Trade Name Freq PRN Reason Stop Dose Admin Ringer's Solution 1,000 mls @ 80 mls/hr 02/13/24 06:00 IV 02/13/24 23:59 INFUSION BROOKE IV Miscellaneous Supplies 1 each 02/13/24 06:00 Iv Access IV 02/13/24 23:59 DIRECTED BROOKE Sodium Chloride 0 ml 02/13/24 06:00 Normal Saline Flush 10 Ml Syr IV 02/13/24 23:59 PRN PRN Sodium Chloride 0 ml 02/13/24 06:00 Normal Saline 10 Ml Vial IJ 02/13/24 23:59 DIRECTED PRN Sterile Water 0 ml 02/13/24 06:00 Water,Injection,Sterile 10 Ml Vial IJ 02/13/24 23:59 DIRECTED PRN PFSH Active Problems Active Problems: Problem Status Onset Code Depressive disorder F32.A Paresthesia R20.2 Erectile dysfunction N52.9 Polyp of colon K63.5 Melanocytic nevus D22.9 BPH w urinary obs/LUTS N40.1, N13.8 History of COVID-19 Z86.16 Osteoarthritis, knee M17.9 Skin mole D22.9 Vitamin D deficiency E55.9 Numbness and tingling sensation of skin R20.0, R20.2 Primary osteoarthritis of left knee M17.12 Medical History Medical History (Updated 02/13/24 @ 09:30 by Raúl Galvez MD) Basal cell carcinoma 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 couldn't urinate and he had to go home with a akhtar Surgical History Surgical History Hx of adenoidectomy H/O cardiac radiofrequency ablation 2019 History of colonoscopy with polypectomy (~2013) Hernia Repair, Incisional r side Tobacco Smoking/Tobacco Use Status: Former Tobacco Use Alcohol Alcohol Intake: current Alcohol intake frequency: 0-2 drinks per day Alcohol type: beer, wine and hard liquor Substance Use Substance use: Never Substance use type: does not use Details: alcohol: t-1, two drinks Vital Signs and Lab Results Vital Signs Most Recent Vital Signs in EMR: Most Recent Vital Signs Temp Pulse Resp BP Pulse Ox 36.5 C 70 18 122/71 100 02/13/24 08:51 02/13/24 08:51 02/13/24 08:51 02/13/24 08:51 02/13/24 08:51 Lab Results Blood Type / Crossmatch: No Data to Display Complete Blood Count: No Data to Display Complete Metabolic Panel: No Data to Display Liver Function Panel: No Data to Display Coagulation Panel: No Data to Display Cardiac Panel: No Data to Display Arterial Blood Gas: No Data to Display Venous Blood Gas: No Data to Display Pancreas Panel: No Data to Display Thyroid Panel: No Data to Display Infectious Disease: No Data to Display Blood Cultures: No Data to Display Toxicology Panel: No Data to Display Imaging and Studies Imaging and Studies Study information below may be from another EMR and interpreted by another provider. Please see original notes in EMR for more complete details. EKG Summary: EKG PATIENT NAME: Bryan Cook UNIT #: [id number] ORDERING PROVIDER: Duane Loza M.D. PRIMARY CARE PROVIDER: JONI SCHAFFER MD DATE/TIME OF SERVICE: 08/25/21 1717 : 1950 PERFORMING LOCATION: ER APPROVED REPORT Exam: Resting ECG Reason for Exam: rapid heart rate Patient Location: E HR:72 bpm ECG Measurements Heart Rate 72 AXIS NV 159 P 41 QRSd 82 QRS 69 QT 392 T62 QTc 429 Conclusion Sinus rhythm...normal P axis, V-rate 60- 99 Multiple ventricular premature complexes...V complexes w/ short R-R intervls <Electronically signed by DUANE LOZA MD in [facility]> E-Sign Date: 08/25/21 E-Sign Time: 1721 ADDENDUM APPROVED REPORT Exam: Resting ECG Reason for Exam: rapid heart rate Patient Location: E HR:72 bpm ECG Measurements Heart Rate 72 AXIS NV 159 P 41 QRSd 82 QRS 69 QT 392 T62 QTc 429 Conclusion Sinus rhythm...normal P axis, V-rate 60- 99 Multiple ventricular premature complexes...V complexes w/ short R-R intervls I have reviewed and I agree with the emergency room physician's ECG interpretation. Electronically signed by: <Electronically signed by Juliette Johnson M.D. in [facility]> 08/26/21 0811 Cosigned by: Anesthesia Assessment and Plan Anesthesia History Personal History: Other (POUR?) Family History: No Family History of Anesthesia Complications Exercise Tolerance Exercise Tolerance: Metabolic Equivalents>4 Pertinent Negatives Pertinent Negatives: No Symptoms of GERD Cardiac & Pulmonary Exam Cardiac Exam: Normal S1/S2 Heart Sounds Pulmonary Exam: Clear Bilateral Breath Sounds Implantable Cardiac Device Does patient have a Pacemaker or an ICD?: No Airway Exam Known Difficult Airway: No Mallampati Class: 2 Mouth Opening: Normal (> 3cm) Thyromental Distance: Greater than 3 cm Neck Range of Motion: Full ROM Neck Circumference: Normal Teeth Condition: Normal Dentition ASA Classification ASA Score: ASA 2 Emergency Case?: No NPO Status NPO Status: NPO Clears >2 hours, Solids >8 hours Anesthesia Plan Resuscitation Status: Full Code Anesthesia Technique: General Anesthesia Airway Planned: Natural Airway Monitors Used: Standard Monitors
[2024-02-13] MEDS: Lactated Ringers 1,000 ML 80 ML IV (09:20)
--- NOTE | 2024-02-13 09:29 | W.SURGCON ---
Date of service: 02/13/24 Time of Service: 09:29 Assessment and Plan Assessment and plan (1) Colon cancer screening: Status: Acute Assessment and plan: 73-year-old man due for surveillance colonoscopy. No increased risk factors or symptoms. Overall plan: Colonoscopy History of Present Illness Narrative: Patient is 73-year-old male. Prior colonoscopy normal. No family history of colon cancer. He has no symptoms but is due for surveillance. PFSH All Active Problems (Updated 02/13/24 @ 09:30 by Raúl Galvez MD) Colon cancer screening (Acute) Depressive disorder (Chronic) Paresthesia (Acute) Erectile dysfunction (Acute) Polyp of colon (Acute) Melanocytic nevus (Acute) BPH w urinary obs/LUTS (Acute) History of COVID-19 (Acute) Osteoarthritis, knee (Acute) Skin mole (Acute) Vitamin D deficiency (Acute) Numbness and tingling sensation of skin (Acute) Primary osteoarthritis of left knee (Acute) Medical History (Updated 02/13/24 @ 09:30 by Raúl Galvez MD) Basal cell carcinoma Psoriasis Hquyq-Tslshsyqm-Entmd (WPW) pattern Per pt. states ablation for this 2020-Pt. states he no longer has to f/u as he has been discharged from cardiology for their care Surgical History Hx of adenoidectomy H/O cardiac radiofrequency ablation 2019 History of colonoscopy with polypectomy (~2013) Hernia Repair, Incisional r side Social History Smoking/Tobacco Use Status: Former Tobacco Use Quit Date: 08/28/03 Smoking risk assessment performed?: Yes Alcohol Intake: current Alcohol Intake frequency: 0-2 drinks per day Alcohol type: beer, wine and hard liquor Drug use: Never Substance use type: does not use Details: alcohol: t-1, two drinks Housing: house Do you feel safe at home: Yes Do you feel safe in your relationship?: Yes Additional Social history: unable to assess privately Exam Narrative Exam Narrative: General: Nontoxic, comfortable and interactive Neuro: Alert and oriented x 3 Psych: Good mood and affect, good insight and understanding into his condition Chest: Nonlabored breathing Heart: Regular Results Last Vital Signs Temp 97.7 F 06/18/24 08:51 Pulse 70 02/13/24 08:51 Resp 18 02/13/24 08:51 BP 122/71 02/13/24 08:51 Pulse Ox 100 02/13/24 08:51
[2024-02-13 09:36] VITALS: BMI 19.5
[2024-02-13 10:03] VITALS: BP 103/65; PULSE 59; RESP 14; TEMP 36.4; O2SAT 99
--- NOTE | 2024-02-13 10:05 | W.COLOREPORT ---
Date of service: 02/13/24 Time of Service: 10:05 Colonoscopy Report Procedure Description: PROCEDURES PERFORMED: 1. Colonoscopy PREOPERATIVE DIAGNOSIS: Surveillance colonoscopy POSTOPERATIVE DIAGNOSIS: Grade 1 internal hemorrhoids. SURGEON: Leelee Galvez MD INDICATION FOR PROCEDURE: the patient is a 73-year-old man whose last colonoscopy was 10+ years ago and reportedly normal. No family history of colon cancer. He has no symptoms or complaints. FINDINGS: The terminal ileum was normal. There were no polyps seen. No obvious diverticular disease. Minimal/mild grade 1 internal hemorrhoid disease. SURVEILLANCE interval/FOLLOW-UP: 10 years - he will be 83 at that time but I do recommend a colonoscopy at that time if he is still healthy with a good life expectancy then. SPECIMENS: None EBL: Minimal COMPLICATIONS: None QUALITY of prep: Excellent Procedure in detail: The patient gave written consent and was in agreement with the indications, the potential risks as well as the benefits of the procedure. They were taken to the endoscopy suite and laid in the left lateral decubitus position. A timeout was performed and anesthesia was administered which was tolerated well. I started the procedure. Digital rectal and visual examination was performed and grossly within normal limits. A well-lubricated flexible colonoscope was then introduced and passed without any notable difficulty all the way to the cecum identified by the ileocecal valve and the appendiceal orifice. The terminal ileum was intubated and looked normal. The scope was then slowly withdrawn with the above-noted findings. The patient tolerated the procedure well and was taken to the PACU in hemodynamically stable condition.
--- NOTE | 2024-02-13 10:05 | W.PM.DSUDISC ---
Date of service: 02/13/24 Time of Service: 10:05 Discharge Plan Disposition Patient Disposition: Home Condition: Good Discharge Details Attending Provider: Raúl Galvez Primary Care Provider: Lubna Matthews V Home Meds and New Rx's Prescriptions: No Action bisacodyl [Dulcolax (bisacodyl)] 5 mg tablet,delayed release (DR/EC) 5 mg PO ONCE Qty: 4 0RF Rx Instructions: Take per colonoscopy instructions provided by ordering providers office polyethylene glycol 3350 17 gram/dose powder 17 g PO ONCE Qty: 238 0RF Rx Instructions: Take per colonoscopy instructions provided by ordering providers office ibuprofen [Advil Liqui-Gel] 200 mg capsule 200 mg PO Q6H PRN multivitamin [Multiple Vitamins] Tablet 1 tab PO DAILY diphenhydramine HCl [Benadryl] 25 mg capsule 25 mg PO Q4H PRN PRN sildenafil 25 mg Tablet 25 mg PO DAILY PRN Discharge Instructions Additional Instructions: FINDINGS: Your colon and rectum appear completely normal and healthy. No polyps were found. No disease processes. Mild hemorrhoids are present but this is a benign condition and nothing needs to be done about it. Activity:: Activity as Tolerated Diet:: As Tolerated DS: Diagnosis Discharge Diagnosis (1) Colon cancer screening: Status: Acute
[2024-02-13 10:31] VITALS: BP 103/65; PULSE 71; RESP 16; TEMP 36.1; O2SAT 98
--- NOTE | 2024-02-13 11:24 | W.ANESPOSTOP ---
Postoperative Evaluation Date, Time and Location Date Performed: 02/13/24 Time Performed: 10:30 Patient Location: Day Surgery Unit Vital Signs Most Recent Imported Vital Signs: Most Recent Vital Signs Temp Pulse Resp BP Pulse Ox 36.1 C L 71 16 103/65 98 02/13/24 10:31 02/13/24 10:31 02/13/24 10:31 02/13/24 10:31 02/13/24 10:31 Pain Score Most Recent Pain Score: Most Recent Pain Score Pain Level 0 02/13/24 10:31 Assessment Mental Status: Awake (Alert & Oriented to Patient Baseline) Airway and Respiratory Function: Patent airway with normal (patient baseline) respiratory exam Cardiovascular Function: Hemodynamically Stable Hydration Status: Adequately Hydrated Nausea & Vomiting: No Nausea or Vomiting Pain: Pt. Denies Any Pain Peripheral Nerve Block: Patient did not receive a nerve block
== END 2024-02-13 10:50 | disposition home or self-care (01) ==
PROVIDERS: PCP Family Medicine; Visit Provider Student in an Organized Health Care Education/Training Program
PROC: 0DJD8ZZ Inspection of Lower Intestinal Tract, Via Natural or Artificial Opening Endoscopic (ICD-10-PCS; CPT 45378; principal; 2024-02-13 09:00)
DX: Z12.11 Encounter for screening for malignant neoplasm of colon (principal)
CPT/HCPCS: G0121; 00123; J2704

== ENCOUNTER → 2024-06-24 10:45 | Outpatient (BNVA) | payer MEDICARE, OTHER, SELFPAY | PROVIDERS: PCP Family Medicine; Referring Provider Family Medicine; Visit Provider Nurse Practitioner Gerontology | DX: N40.1 Benign prostatic hyperplasia with lower urinary tract symptoms (principal); N13.8 Other obstructive and reflux uropathy; R35.1 Nocturia; R35.0 Frequency of micturition; N52.9 Male erectile dysfunction, unspecified | CPT/HCPCS: 51798; 81003; 99215 ==

== ENCOUNTER → 2024-09-24 10:21 | Outpatient (BNVA) | payer MEDICARE, OTHER, SELFPAY | PROVIDERS: PCP Family Medicine; Referring Provider Family Medicine; Visit Provider Nurse Practitioner Gerontology | DX: N52.9 Male erectile dysfunction, unspecified (principal); N40.1 Benign prostatic hyperplasia with lower urinary tract symptoms; N13.8 Other obstructive and reflux uropathy | CPT/HCPCS: 51798; 99213 ==

== ENCOUNTER 2025-01-13 18:19 | Outpatient (REF) | payer MEDICARE, OTHER, SELFPAY ==
[2025-01-13 19:44] LABS: Abs Immature Grans 0.03 10^3/uL (0.0-0.06); Absolute Basophil Count 0.03 10^3/uL (0.0-0.2); Absolute Eosinophil Count 0.06 10^3/uL (0.0-0.7); Absolute Neutrophil Count 3.91 10^3/uL (1.2-6.7); Basophils % 0.5 %; Eosinophils % 1.1 %; HCT 42.5 % (40.0-50.0); HGB 14.2 g/dL (13.5-17.5); Immature Grans % 0.5 %; Lymphocytes % 19.9 %; MCH 31.8 pg (27.0-33.0); MCHC 33.4 % (32.0-36.0); MCV 95 fL (80-95); MPV 11.3 fL (8.0-11.0); Monocytes % 7.2 %; Neutrophils % 70.8 %; Platelet Count 211 10^3/uL (130-400); RBC 4.47 10^6/uL (4.36-5.78); RDW 12.1 % (11.8-14.1); RDW-SD 42.5 fL; WBC 5.53 10^3/uL (4.4-10.8)
[2025-01-13 20:03] LABS: ALT 25 U/L (16-63); AST 22 U/L (15-37); Albumin 4.1 g/dL (3.4-5.0); Alkaline Phosphatase 57 U/L (46-116); Anion Gap 9.2 mmol/L (3-11); BUN 16 mg/dL (7-18); Bilirubin, Total 0.5 mg/dL (0.2-1.0); CO2 27.8 mmol/L (21.0-32.0); CREATININE 1.1 mg/dL (0.70-1.30); Calcium 9.2 mg/dL (8.5-10.1); Chloride 101 mmol/L (98-107); Estimated GFR 70.44 (mL/min/1.73m2); Glucose 103 mg/dL (74-106); Potassium 4.5 mmol/L (3.5-5.1); Sodium 138 mmol/L (136-145); Total Protein 6.8 g/dL (6.4-8.2)
[2025-01-13 20:54] LABS: Vitamin B12 408 pg/mL (193-986)
[2025-01-13 20:59] LABS: Folate > 20.0 ng/mL (8.6-20.0)
== END 2025-01-13 18:20 | disposition home or self-care (01) ==
LOC: NCHCN 18:19
PROVIDERS: PCP Family Medicine; Visit Provider Nurse Practitioner Family
DX: Z00.00 Encounter for general adult medical examination without abnormal findings (principal)
CPT/HCPCS: 80053; 82607; 82746; 85025

== ENCOUNTER → 2025-03-11 14:17 | Outpatient (BNVA) | payer MEDICARE, OTHER, SELFPAY | PROVIDERS: PCP Family Medicine; Referring Provider Family Medicine; Visit Provider Nurse Practitioner Gerontology | DX: N52.9 Male erectile dysfunction, unspecified (principal); N40.1 Benign prostatic hyperplasia with lower urinary tract symptoms; N13.8 Other obstructive and reflux uropathy; R39.9 Unspecified symptoms and signs involving the genitourinary system | CPT/HCPCS: 99213; 51798 ==

== ENCOUNTER 2025-03-11 14:57 | Outpatient (CLI) | payer MEDICARE, OTHER, SELFPAY ==
[2025-03-11 22:31] LABS: PSA, Screening 3.9 ng/mL (<=6.5)
== END 2025-03-11 14:58 | disposition home or self-care (01) ==
LOC: LBO 15:02
PROVIDERS: PCP Family Medicine; Visit Provider Nurse Practitioner Gerontology
DX: N40.1 Benign prostatic hyperplasia with lower urinary tract symptoms (principal); R39.9 Unspecified symptoms and signs involving the genitourinary system
CPT/HCPCS: 36415; 51798; 84153; 99213

== ENCOUNTER 2025-04-07 13:26 | Outpatient (CLI) | payer MEDICARE, OTHER, SELFPAY ==
--- NOTE | 2025-04-07 14:38 | DI.RAD_ITS ---
Exam(s) XR RIBS LT W PA LAT CHEST CLINICAL HISTORY: R07.81 Pleurodynia,LT Rib pain. COMPARISON: CR XR CHEST 2V PA LATERAL from 08/23/2021 TECHNIQUE:: PA and lateral views of the chest and four views of the right ribs were performed. FINDINGS: LUNGS:Clear. No pleural abnormality seen. HEART: Normal size. MEDIASTINUM: Normal. BONES: There is a subacute appearing nondisplaced fracture of the distal and of the 6th rib. No bony destructive lesion is seen. IMPRESSION: 1. Subacute fracture of the distal left 6 rib. 2. No acute pulmonary findings.
== END 2025-04-07 13:46 ==
LOC: DI 13:30
PROVIDERS: PCP Family Medicine; Visit Provider Nurse Practitioner Family
DX: R07.81 Pleurodynia (principal); S22.42XA Multiple fractures of ribs, left side, initial encounter for closed fracture; X58.XXXA Exposure to other specified factors, initial encounter
CPT/HCPCS: 71046; 71100